=== PATIENT | male | born 1940 | race Caucasian/White ===

== ENCOUNTER 2016-08-22 21:33 | Emergency (ER) | payer MEDICARE, OTHER ==
[~2016-08-22] VITALS: Ht 177.8 cm; Wt 63.5 kg
[~2016-08-22 21:33] MED LIST: ASPIRIN EC81 MG PO; CLONAZEPAM1 MG PO; CYCLOBENZAPRINE10 MG PO; LIPITOR20 MG PO; LISINOPRIL20 MG PO; MAGNESIUM400 MG PO; METOPROLOL TAR100 MG PO; METOPROLOL TART50 MG PO; MSM1000 MG PO; MULTI VITAMIN1 EACH PO; NORCO 5-325 TA1 EACH PO; OMEPRAZOLE20 MG PO; PRILOSEC10 M1 PO; PROAIR HFA8.5 GM INH; SOMA350 MG PO; SYMBICORT 16010.2 GM INH; TRAMADOL HCL50 MG PO; VITAMIN D31000 UNIT PO
[2016-08-22] MEDS ORDERED: CLOPIDOGREL75 MG PO (21:49)
== END 2016-08-23 00:43 | disposition home or self-care (01) ==
LOC: ED 21:33
DX: R10.32 Left lower quadrant pain (principal); I10 Essential (primary) hypertension; I25.2 Old myocardial infarction; J43.9 Emphysema, unspecified; Z85.46 Personal history of malignant neoplasm of prostate; Z87.891 Personal history of nicotine dependence; Z90.79 Acquired absence of other genital organ(s); Z88.8 Allergy status to other drugs, medicaments and biological substances; Z79.82 Long term (current) use of aspirin; Z79.899 Other long term (current) drug therapy
CPT/HCPCS: 74177; 80053; 81001; 83690; 85025; 99284; Q9967

== ENCOUNTER 2017-06-18 17:09 | Emergency (ER) | payer MEDICARE, OTHER ==
[~2017-06-18] VITALS: Ht 177.8 cm; Wt 63.5 kg
[~2017-06-18 17:09] MED LIST changes: +CLOPIDOGREL75 MG PO
[2017-06-18] MEDS ORDERED: PLAVIX75 MG PO (18:11)
--- NOTE | 2017-06-19 16:01 | EKG ---
[facility] [address] [place] [address] Signed Sinus bradycardia with 1st degree AV block Left anterior fascicular block Inferior infarct (cited on or before 21-JAN-2016) Anterior infarct (cited on or before 21-JAN-2016) Abnormal ECG When compared with ECG of 22-FEB-2016 13:52, Left anterior fascicular block is now present T wave inversion no longer evident in Inferior leads Confirmed by SALEEM CRAWLEY MD ([id number]) on 06/19/2017 4:01:24 PM Electronically Signed By: SALEEM CRAWLEY MD 06/19/17 1601 PATIENT NAME: JOSÉ AGUIRRE Electrocardiogram DATE OF : 36 PHYSICIAN: SALEEM CRAWLEY MD REPORT #: [id number] REPORT IS CONFIDENTIAL AND NOT TO BE RELEASED WITHOUT AUTHORIZATION
== END 2017-06-18 18:21 | disposition home or self-care (01) ==
LOC: ED 17:09
DX: R07.9 Chest pain, unspecified (principal); I10 Essential (primary) hypertension; I25.2 Old myocardial infarction; J44.9 Chronic obstructive pulmonary disease, unspecified; Z87.891 Personal history of nicotine dependence; Z88.8 Allergy status to other drugs, medicaments and biological substances; Z79.899 Other long term (current) drug therapy; Z79.82 Long term (current) use of aspirin
CPT/HCPCS: 71045; 80053; 84484; 85025; 93005; 93010; 99283

== ENCOUNTER 2018-02-20 20:36 | Emergency (ER) | payer MEDICARE ==
[~2018-02-20] VITALS: Ht 177.8 cm; Wt 63.5 kg
[~2018-02-20 20:36] MED LIST changes: +ALBUTEROL2.5 MG/3 M INH; +PLAVIX75 MG PO; +PROVENTIL HFA6.7 GM INH
--- NOTE | 2018-02-21 07:00 | EKG ---
[facility] [address] [place] [address] Signed Sinus bradycardia with 1st degree AV block Left anterior fascicular block Cannot rule out Inferior infarct (cited on or before 22-FEB-2016) Anteroseptal infarct (cited on or before 21-JAN-2016) Abnormal ECG When compared with ECG of 18-JUN-2017 17:12, No significant change was found Confirmed by SALEEM CRAWLEY MD ([id number]) on 02/21/2018 7:00:29 AM Electronically Signed By: SALEEM CRAWLEY MD 02/21/18 0700 PATIENT NAME: JOSÉ AGUIRRE Electrocardiogram DATE OF : 36 PHYSICIAN: SALEEM CRAWLEY MD REPORT #: [id number] REPORT IS CONFIDENTIAL AND NOT TO BE RELEASED WITHOUT AUTHORIZATION
== END 2018-02-21 01:22 | disposition home or self-care (01) ==
LOC: ED 20:36
DX: R07.89 Other chest pain (principal); I10 Essential (primary) hypertension; I25.2 Old myocardial infarction; J43.9 Emphysema, unspecified; Z85.46 Personal history of malignant neoplasm of prostate; Z95.5 Presence of coronary angioplasty implant and graft; Z79.899 Other long term (current) drug therapy; Z79.82 Long term (current) use of aspirin
CPT/HCPCS: 71045; 80053; 83690; 84484; 85025; 93005; 93010; 99285-25

== ENCOUNTER 2018-11-15 00:41 | Emergency (ER) | payer MEDICARE ==
[~2018-11-15] VITALS: Ht 177.8 cm; Wt 61.2 kg
--- OUTSIDE RECORDS SUMMARY | ~2018-11-15 | XMS | Encounter Summary ---
Demographics + + + | Address | [address] | | | [place] [address] | + + + | Home Phone | | + + + | Preferred Language | Unknown | + + + | Marital Status | | + + + | Oriental Orthodox Affiliation | 1077 | + + + | Race | Unknown | + + + | Ethnic Group | Unknown | + + + Author + + + | Author | [facility] | | | and [place] | + + + | Organization | [facility] | | | and [place] | + + + | Address | Unknown | + + + | Phone | Unavailable | + + + Support + + + + + | Name | Relationship | Address | Phone | + + + + + | Jojo Mathew | ECON | [place] | | | | | [phone] | | + + + + + | Iqra Ellis | ECON | [address] | | | | | [place] | | | | | [phone] | | + + + + + Care Team Providers + +------+ + | Care Protection Engineer Name | Role | Phone | + +------+ + | Kurt Powell DO | PCP | | + +------+ + Reason for Visit + + + | Reason | Comments | + + + | Medication Refill | | + + + Encounter Details +--------+--------+ + + + | Date | Type | Department | Care Team | Description | +--------+--------+ + + + | 10/29/ | Refill | [facility] | Kurt Powell | Medication Refill | | 2019 | | [facility] | E, DO [address] | | | | | [facility] [address] | [place], [place] | | | | | [address] [place], | [address] | | | | | [place] [address] | [phone] | | | | | [phone] | | | +--------+--------+ + + + Social History + + + +--------+ + | Tobacco Use | Types | Packs/Day | Years | Date | | | | | Used | | + + + +--------+ + | Former Smoker | Cigarettes | 1 | | Quit: 01/22/2016 | + + + +--------+ + + +---+---+---+ | Smokeless Tobacco: | | | | | Never Used | | | | + +---+---+---+ + + +---------+ + | Alcohol Use | Drinks/We | oz/Week | Comments | | | ek | | | + + +---------+ + | No | | | Quit 01/22/2016 | + + +---------+ + + + + | Sex Assigned at | Date Recorded | | | | + + + | Not on file | | + + + + + + + | Job Start Date | Occupation | Industry | + + + + | Not on file | Not on file | Not on file | + + + + + + + + | Travel History | Travel Start | Travel End | + + + + + + | No recent travel history available. | + + documented as of this encounter Functional Status + + + + | Functional Status | Response | Date of Assessment | + + + + | Are you deaf or do you have serious | No | 01/27/2016 | | difficulty hearing? | | | + + + + | Are you blind or do you have serious | No | 01/27/2016 | | difficulty seeing, even when wearing | | | | glasses? | | | + + + + | Do you have serious difficulty walking or | No | 01/27/2016 | | climbing stairs? (5 years old or older) | | | + + + + | Do you have difficulty dressing or bathing? | No | 01/27/2016 | | (5 years old or older) | | | + + + + | Because of a physical, mental, or emotional | No | 01/27/2016 | | condition, do you have difficulty doing | | | | errands alone such as visiting a doctor's | | | | office or shopping? [15 years old or | | | | older)] | | | + + + + + + + + | Cognitive Status | Response | Date of Assessment | + + + + | Because of a physical, mental, or emotional | No | 01/27/2016 | | condition, do you have serious difficulty | | | | concentrating, remembering, or making | | | | decisions? (5 years old or older) | | | + + + + documented as of this encounter Plan of Treatment Not on filedocumented as of this encounter Visit Diagnoses Not on filedocumented in this encounter"
--- OUTSIDE RECORDS SUMMARY | ~2018-11-15 | XMS | Clinical Summary ---
Demographics + + + | Address | [address] | | | [place] [address] | + + + | Home Phone | | + + + | Preferred Language | Unknown | + + + | Marital Status | | + + + | Christian Affiliation | Unknown | + + + | Race | Unknown | + + + | Ethnic Group | Unknown | + + + Author + + + | Author | [facility] [employer] (Historical as of | | | 09-26-18) | + + + | Organization | [facility] [employer] (Historical as of | | | 09-26-18) | + + + | Address | Unknown | + + + | Phone | Unavailable | + + + Support + + + + + | Name | Relationship | Address | Phone | + + + + + | Iqar Ellis | ECON | [address] | | | | | [place], [place] | | | | | [address] | | + + + + + Care Team Providers + +------+ + | Care Typesetters Printer Name | Role | Phone | + +------+ + PP | Unavailable | + +------+ + Allergies Not on File Current Medications Not on file Active Problems Not on file Social History + +-------+ +--------+------+ | Tobacco Use | Types | Packs/Day | Years | Date | | | | | Used | | + +-------+ +--------+------+ | Never Assessed | | | | | + +-------+ +--------+------+ + + + | Sex Assigned at | Date Recorded | | | | + + + | Not on file | | + + + Plan of Treatment Not on file Results Not on filefrom Last 3 Months"
--- OUTSIDE RECORDS SUMMARY | ~2018-11-15 | XMS | Encounter Summary ---
Demographics + + + | Address | [address] | | | [place] [address] | + + + | Home Phone | | + + + | Preferred Language | Unknown | + + + | Marital Status | | + + + | Pentecostalism Affiliation | 1077 | + + + | Race | Unknown | + + + | Ethnic Group | Unknown | + + + Author + + + | Author | [facility] | | | and [place] | + + + | Organization | [facility] | | | and [place] | + + + | Address | Unknown | + + + | Phone | Unavailable | + + + Support + + + + + | Name | Relationship | Address | Phone | + + + + + | Jojo Mathew | ECON | [place] | | | | | [address] | | + + + + + | Iqra Ellis | ECON | [address] | | | | | [place] | | | | | [address] | | + + + + + Care Team Providers + +------+ + | Care Mail Technician Name | Role | Phone | + [...] Description | +--------+--------+ + + + | 08/26/ | Refill | [facility] | Eryn Greenwood, | Medication Refill | | 2019 | | [facility] | HIM SPECIALIST | | | | | [facility] [address] | | | | | | [address] [facility], | | | | | | [place] [address] | | | | | | [phone] | | | +--------+--------+ + + + [...]
--- OUTSIDE RECORDS SUMMARY | ~2018-11-15 | XMS | Encounter Summary ---
Demographics + + + | Address | [address] | | | [place] [address] | + + + | Home Phone | | + + + | Preferred Language | Unknown | + + + | Marital Status | | + + + | Adventism Affiliation | 1077 | + + + | Race | Unknown | + + + | Ethnic Group | Unknown | + + + Author + + + | Author | [facility] | | | and [place] | + + + | Organization | [facility] | | | and [place] | + + + | Address | Unknown | + + + | Phone | Unavailable | + + + Support + + + + + | Name | Relationship | Address | Phone | + + + + + | Jojo Mathew | ECON | [place] | | | | | [address] | | + + + + + | Iqra Ellis | ECON | [address] | | | | | [place] | | | | | [address] | | + + + + + Care Team Providers + +------+ + | Care Coach Driver Name | Role | Phone | + +------+ + | Kurt Powell DO | PCP | | + +------+ + Reason for Visit + + + | Reason | Comments | + + + | Medication Refill | | + + + | Medication Refill | | + + + Encounter Details +--------+--------+ + + + | Date | Type | Department | Care Team | Description | +--------+--------+ + + + | 08/26/ | Refill | [facility] | Kurt Powell | Medication Refill; | | 2018 | | [facility] | E, DO [address] | Medication Refill | | | | MEDICAL [facility] [address] | [place] | | | | | [address] [place], | [address] | | | | | [place] [address] | [phone] | | | | | [phone] | | | +--------+--------+ + + + [...]
--- OUTSIDE RECORDS SUMMARY | ~2018-11-15 | XMS | Clinical Summary ---
Demographics + + + | Address | [address] | | | [place] [address] | + + + | Home Phone | | + + + | Preferred Language | Unknown | + + + | Marital Status | | + + + | Shinto Affiliation | 1077 | + + + | Race | Unknown | + + + | Ethnic Group | Unknown | + + + Author + + + | Author | [facility] | | | and [place] | + + + | Organization | [facility] | | | and [place] | + + + | Address | Unknown | + + + | Phone | Unavailable | + + + Support + + + + + | Name | Relationship | Address | Phone | + + + + + | Jojo Mathew | ECON | [place] | | | | | [address] | | + + + + + | Iqra Ellis | ECON | [address] | | | | | [place] | | | | | [address] | | + + + + + Care Team Providers + +------+ + | Care Basic Sciences Dean Name | Role | Phone | + +------+ + | Kurt Powell DO | CAROL ANN | | + +------+ + Allergies + + + + + + | Active Allergy | Reactions | Severity | Noted | Comments | | | | | Date | | + + + + + + | Lisinopril | Swelling | | 01/21/20 | | | | | | 16 | | + + + + + + Medications + + + +---------+------+------+-------+ | Medication | Sig | Dispensed | Refills | Star | End | Statu | | | | | | t | Date | s | | | | | | Date | | | + + + +---------+------+------+-------+ | aspirin (ADULT | Take 81 mg by mouth | | 0 | 10/11 | | Activ | | ASPIRIN EC LOW | Daily. | | | 04/29 | | e | | STRENGTH) 81 MG EC | | | | 12 | | | | tablet | | | | | | | + + + +---------+------+------+-------+ | cholecalciferol | Take 400 Units by | | 0 | | | Activ | | (VITAMIN D-3) 1,000 | mouth Daily. | | | | | e | | units capsule | | | | | | | + + + +---------+------+------+-------+ | Multiple | Take 1 tablet by | 30 | 11 | / | | Activ | | Vitamins-Minerals | mouth Daily. | tablet | | /20 | | e | | (ADULT MULTIVITAMIN | | | | 16 | | | | WITH MINERALS/IRON) | | | | | | | | TABS | | | | | | | + + + +---------+------+------+-------+ | nitroglycerin | DISSOLVE ONE TABLET | 25 | 11 | / | | Activ | | (NITROSTAT) 0.4 mg | UNDER THE TONGUE | tablet | | /20 | | e | | SL tablet | EVERY 5 MINUTES | | | 18 | | | | | NEEDED FOR CHEST | | | | | | | | PAIN. DO NOT EXCEED | | | | | | | | A TOTAL OF 3 DOSES | | | | | | | | IN 15 MINUTES | | | | | | + + + +---------+------+------+-------+ | omeprazole | TAKE ONE CAPSULE BY | 90 | 3 | 11/1 | | Activ | | (PRILOSEC) 20 mg | MOUTH IN THE MORNING | capsule | | 3/20 | | e | | capsule | BEFORE BREAKFAST | | | 18 | | | + + + +---------+------+------+-------+ | melatonin 1 mg | Take by mouth | | 0 | | | Activ | | TABS | nightly as needed. | | | | | e | + + + +---------+------+------+-------+ | docusate sodium | Take 100 mg by mouth | | 0 | | | Activ | | (STOOL SOFTENER) 100 | 2 times daily. | | | | | e | | MG tablet | | | | | | | + + + +---------+------+------+-------+ | APPLE CIDER | Take by mouth | | 0 | | | Activ | | VINEGAR PO | Daily. | | | | | e | + + + +---------+------+------+-------+ | GINKGO BILOBA PO | Take by mouth | | 0 | | | Activ | | | Daily. | | | | | e | + + + +---------+------+------+-------+ | | Take by mouth | | 0 | | | Activ | | Methylsulfonylmethan | Daily. | | | | | e | | e (MSM PO) | | | | | | | + + + +---------+------+------+-------+ | tamsulosin | Take 1 capsule by | 90 | 3 | 12/1 | | Activ | | (FLOMAX) 0.4 mg CAPS | mouth Daily (with | capsule | | 0/20 | | e | | | dinner). | | | 18 | | | + + + +---------+------+------+-------+ | atorvaSTATin | TAKE 1 TABLET BY | 90 | 3 | 02/2 | | Activ | | (LIPITOR) 40 mg | MOUTH ONCE DAILY AT | tablet | | 0/20 | | e | | tablet | BEDTIME | | | 19 | | | + + + +---------+------+------+-------+ | albuterol 2.5 mg/3 | Take 3 mLs by | 360 | 11 | 03/2 | | Activ | | mL nebulizer | nebulization 4 times | vial | | 07/30 | | e | | solution | daily as needed for | | | 19 | | | | | Wheezing or | | | | | | | | Shortness of Breath. | | | | | | | | CORRECTED DOSE. | | | | | | + + + +---------+------+------+-------+ | albuterol 90 | INHALE 1 PUFF EVERY | 18 g | 11 | 03/2 | | Activ | | mcg/puff inhaler | 4 HOURS NEEDED | | | 920 | | e | | | SHORTNESS OF BREATH | | | 19 | | | + + + +---------+------+------+-------+ | metoprolol | TAKE 1 TABLET BY | 180 | 3 | 08/1 | | Activ | | tartrate (LOPRESSOR) | MOUTH TWICE DAILY | tablet | | 2/20 | | e | | 100 mg tablet | (PLEASE SCHEDULE | | | 19 | | | | | AN CARDIOLOGY | | | | | | | | APPOINTMENT) | | | | | | + + + +---------+------+------+-------+ | DULoxetine | Take 1 capsule by | 60 | 2 | / | | Activ | | (CYMBALTA) [address] | mouth 2 times daily. | capsule | | 2/20 | | e | | capsuleIndications: | | | | 19 | | | | Osteoarthritis of | | | | | | | | right thumb, | | | | | | | | Depression, | | | | | | | | unspecified | | | | | | | | depression type | | | | | | | + + + +---------+------+------+-------+ | traMADol (ULTRAM) | Take 1 tablet by | 60 | 1 | 08/2 | | Activ | | 50 mg tablet | mouth every 8 hours | tablet | | 08/29 | | e | | | as needed. | | | 19 | | | + + + +---------+------+------+-------+ | clonazePAM | TAKE 1 TABLET BY | 30 | 1 | 10/11 | | Activ | | (KLONOPIN) 1 mg | MOUTH AT BEDTIME | tablet | | 09/29 | | e | | tablet | NEEDED FOR ANXIETY | | | 19 | | | + + + +---------+------+------+-------+ | clonazePAM | TAKE 1 TABLET BY | 30 | 1 | 08/10 | 10/11 | Disco | | (KLONOPIN) 1 mg | MOUTH NIGHTLY | tablet | | 08/29 | 08/29 | ntinu | | tablet | NEEDED FOR ANXIETY | | | 19 | 19 | ed | + + + +---------+------+------+-------+ Active Problems + + + | Problem | Noted Date | + + + | COPD with acute exacerbation | 01/19/2018 | + + + | Chronic back pain | 01/19/2018 | + + + | Sleep apnea | 01/19/2018 | + + + | Coronary atherosclerosis | 04/30/2017 | + + + | Moderate protein-calorie malnutrition | 01/27/2016 | + + + | Multivessel Coronary Disease | 01/27/2016 | + + + | Alcohol abuse | 01/23/2016 | + + + | ST elevation myocardial infarction involving right coronary | 01/21/2016 | | artery | | + + + | Tobacco user | | + + + | Hypertension | | + + + | Hyperlipidemia | | + + + | PROSTATE CANCER | | + + + | SPONDYLOLISTHESIS,LUMBAR L2-3,L3-4,L4-5 AND L5-S1 | | + + + | SPINAL STENOSIS, LUMBAR - SEVERE L2-3, L3-4 | | + + + | SPINAL STENOS LUMB REGION NEUROGEN CLAUDICATION | | + + + | DEXTROSCOLIOSIS | | + + + | SACROILIITIS, RIGHT | | + + + | Pulmonary emphysema | | + + + + + | Overview: SARAH [id number] Decision | + + + +---+ | POLYCYTHEMIA RUBRA VERA | | + +---+ | HTN (hypertension) | | + +---+ Encounters +--------+ + + + + | Date | Type | Specialty | Care Team | Description | +--------+ + + + + | 10/29/ | Refill | Primary Care | Kurt Powell | Medication Refill | | 2018 | | | E, DO | | +--------+ + + + + | 10/29/ | Telephone | Primary Care | Dominique Cameron CC | Medication Refill | | 2018 | | | CLEAN ROOM ASSEMBLER | | +--------+ + + + + | 10/27/ | Telephone | Primary Care | Kurt Powell | Medication Refill; | | 2018 | | | E, DO | Medication Refill | +--------+ + + + + | 10/05/ | Telephone | Primary Care | Kurt Powell | Medication Question | | 2018 | | | E, DO | | +--------+ + + + + | 10/01/ | Office | Primary Care | Kurt Powell | Osteoarthritis of | | 2019 | Visit | | E, DO | right thumb (Primary | | | | | | Dx); Lumbar | | | | | | spondylosis; | | | | | | Depression, | | | | | | unspecified | | | | | | depression type | +--------+ + + + + | 09/20/ | Refill | Primary Care | Kurt Powell | Medication Refill | | 2018 | | | E, DO | | +--------+ + + + + | 08/26/ | Refill | Primary Care | Kurt Powell | Medication Refill | | 2018 | | | E, DO | | +--------+ + + + + | 08/26/ | Refill | Primary Care | Kurt Powell | Medication Refill; | | 2018 | | | E, DO | Medication Refill | +--------+ + + + + | 08/26/ | Refill | Primary Care | Eryn Greenwood, | Medication Refill | | 2018 | | | CC CLEAN ROOM ASSEMBLER | | +--------+ + + + + from Last 3 Months Immunizations + + + + | Name | Dates Previously Given | Next Due | + + + + | INFLUENZA PF 16 Y OR | 10/29/2016 | | | >,TRIVALENT | | | | RECOMBINANT | | | + + + + | INFLUENZA PF | 01/26/2016 | | | QUAD(PED/ADOL/ADULT) | | | | ,PSKT or VIAL | | | + + + + | PNEUMOCOCCAL | 01/26/2016 | | | CONJUGATE 13-VALENT | | | | (PCV13) | | | + + + + | TDAP, (ADOL/ADULT) | 06/04/2012 | | + + + + | ZOSTER, 1 DOSE | 04/25/2012 | | | (ZOSTAVAX) | | | + + + + Social History + + [...] | | | + +---+---+---+ + + | Tobacco Cessation: Counseling Given: No | + + + + +---------+ + | Alcohol Use [...] recent travel history available. | + + Last Filed Vital Signs + + + + | Vital Sign | Reading | Time Taken | + + + + | Blood Pressure | 130/70 | 10/01/2018 1505 PDT | + + + + | Pulse | 55 | 10/01/2018 1505 PDT | + + + + | Temperature | 36.8 C (98.2 F) | 01/19/201834 PST | + + + + | Respiratory Rate | 20 | 10/01/2018 1505 PDT | + + + + | Oxygen Saturation | 93% | 10/01/20181504 PDT | + + + + | Inhaled Oxygen | - | - | | Concentration | | | + + + + | Weight | 59 kg (130 lb) | 10/01/2018 1505 PDT | + + + + | Height | 180.3 cm (5' 11") | 10/01/2018 1505 PDT | + + + + | Body Mass Index | 18.13 | 10/01/20185 PDT | + + + + Plan of Treatment + + + + + | Health Maintenance | Due Date | Last Done | Comments | + + + + + | Urine Drug Screening | | | | | | 5 | | | + + + + + | Vaccine: Zoster (2 | | 04/25/2012 | | | of 3) | 3 | | | + + + + + | Adult Annual | | | | | Wellness Visit | 5 | | | + + + + + | Vaccine: | | 01/26/2016 | | | Pneumococcal 65+ | 7 | | | | High/Highest Risk (2 | | | | | of 2 - PPSV23) | | | | + + + + + | Vaccine: Influenza | | 10/29/2016, 10/29/2016, | | | (#1) | 9 | 01/26/2016 | | + + + + + | Primary Care | | 10/01/2018, 04/16/2018, | | | Outreach (Very | 9 | 01/19/2018, Additional history | | | Intense Risk) | | exists | | + + + + + | Vaccine: | | 06/04/2012 | | | Dtap/Tdap/Td (2 - | 3 | | | | Td) | | | | + + + + + Implants + +-------+--------+ +--------+--------+--------+ | Implanted | Type | Area | Manufacture | Device | Shelf | Model | | | | | r | | Expira | / | | | | | | Identi | tion | Serial | | | | | | fier | Date | / Lot | + +-------+--------+ +--------+--------+--------+ | Promis Premier Monorail | Stent | N/A: | [place] | | 12/24/ | [id number] | | [employer] [place] [employer] [place] | | Castillo | SCIENTIFIC | | 2016 | [id number] | | Chromium Coronary Stent | | ry | MAYKEL - BSCI | | | 5O / | | System Implanted: Qty: 1 on | | | | | | /[id number] | | 01/21/2016 by Abiola Hardwick | | | | | | 025 | | MD [place] | | | | | | | + +-------+--------+ +--------+--------+--------+ | Promus Preimer Monorail | Stent | N/A: | [place] | | 12/10/ | [id number] | | [employer] [place] | | Castillo | SCIENTIFIC | | 2016 | [id number] | | Chromium Coronary Stent | | ry | MAYKEL - BSCI | | | 5O / | | System Implanted: Qty: 1 on | | | | | | /[id number] | | 01/21/2016 by Abiola Hardwick | | | | | | 737 | | MD [place] | | | | | | | + +-------+--------+ +--------+--------+--------+ | Promus Premier Monorail | Stent | N/A: | [place] | | 12/18/ | [id number] | | [employer] [place] [employer] [place] | | Castillo | SCIENTIFIC | | 2017 | [id number] | | Chromium Coronary Stent | | ry | MAYKEL - BSCI | | | 0O / | | SystemImplanted: Qty: 1 on | | | | | | /[id number] | | 01/25/2016 by Abiola Hardwick | | | | | | 847 | | MD [place] | | | | | | | + +-------+--------+ +--------+--------+--------+ Results Not on filefrom Last 3 Months Insurance + +--------+ +--------+ +---------+--------+ | Payer | Benefi | Subscriber | Effect | Phone | Address | Type | | | t Plan | ID | courtney | | | | | | / | | Dates | | | | | | Group | | | | | | + +--------+ +--------+ +---------+--------+ | MEDICARE | MEDICA | [id number] | 10/12/19 | [phone] | | Medica | | | RE | | 04-Pre | 5 | | re | | | PART A | | sent | | | | | | AND B | | | | | | + +--------+ +--------+ +---------+--------+ | MEDICARE | MEDICA | [id number] | 02/10/19 | [phone] | | Medica | | | RE | | 17-Pre | 5 | | re | | | PART A | | sent | | | | | | AND B | | | | | | + +--------+ +--------+ +---------+--------+ | HUMANA | HUMANA | [id number] | 02/10/19 | [phone] | | Indemn | | | MDCR | | 17-Pre | 4 | | ity | | | SUPPL | | sent | | | | + +--------+ +--------+ +---------+--------+ + +--------+ +--------+ + + | Guarantor Name | Accoun | Relation to | Date | Phone | Billing Address | | | t Type | Patient | of | | | | | | | | | | + +--------+ +--------+ + + | Kiran Ellis | Person | Self | [birth year] | [address] | | Kranthi | al/Fam | | 1941 | [phone] | [place] | | | po | | | 6 (Home) | [address] | + +--------+ +--------+ + + | Kiran Ellis | Person | Self | [birth year] | [address] | | Kranthi | al/Fam | | 1941 | [phone] | [place] | | | po | | | 6 (Home) | [address] | + +--------+ +--------+ + + Advance Directives Patient has advance care planning documents, and code status on file. For more information, please contact:[facility] [place] [address] + + + + + | Code Status | Date | Date | Comments | | | Activated | Inactivated | | + + + + + | Full Code | 01/22/2016 | 01/27/2016 | | | | 10:39 | 16:03 | | + + + + +
--- OUTSIDE RECORDS SUMMARY | ~2018-11-15 | XMS | Encounter Summary ---
Demographics + + + | Address | [address] | | | [place] [address] | + + + | Home Phone | | + + + | Preferred Language | Unknown | + + + | Marital Status | | + + + | Evangelical Affiliation | 1077 | + + + | Race | Unknown | + + + | Ethnic Group | Unknown | + + + Author + + + | Author | [facility] | | | and [place] | + + + | Organization | [facility] | | | and [place] | + + + | Address | Unknown | + + + | Phone | Unavailable | + + + Support + + + + + | Name | Relationship | Address | Phone | + + + + + | Jojo Mathew | ECON | [place] | | | | | [address] | | + + + + + | Iqra Ellis | ECON | [address] | | | | | [place] | | | | | [address] | | + + + + + Care Team Providers + +------+ + | Care Lumber Grader Name | Role | Phone | + +------+ + | Kurt Powell DO | PCP | | + +------+ + Reason for Visit + + + | Reason | Comments | + + + | Medication Question | | + + + Encounter Details +--------+ + + + + | Date | Type | Department | Care Team | Description | +--------+ + + + + | 10/05/ | Telephone | [facility] | Kurt Powell | Medication Question | | 2018 | | [facility] | E, DO [address] | | | | | [facility] [address] | [place], [place] | | | | [address] [place], | [address] | | | | | [place] [address] | [phone] | | | | | [phone] | | | +--------+ + + + + Social History + [...]
--- OUTSIDE RECORDS SUMMARY | ~2018-11-15 | XMS | Encounter Summary ---
Demographics + + + | Address | [address] | | | [place] [address] | + + + | Home Phone | | + + + | Preferred Language | Unknown | + + + | Marital Status | | + + + | Sabianism Affiliation | 1077 | + + + | Race | Unknown | + + + | Ethnic Group | Unknown | + + + Author + + + | Author | [facility] | | | and [place] | + + + | Organization | [facility] | | | and [place] | + + + | Address | Unknown | + + + | Phone | Unavailable | + + + Support + + + + + | Name | Relationship | Address | Phone | + + + + + | Jojo Mathew | ECON | [place] | | | | | [address] | | + + + + + | Iqra Ellis | ECON | [address] | | | | | [place] | | | | | [address] | | + + + + + Care Team Providers + +------+ + | Care Electromedical Service Engineer Name | Role | Phone | + +------+ + | Kurt Powell DO | PCP | | + +------+ + Reason for Visit + + + | Reason | Comments | + + + | Follow-up | Follow up on medications | + + + | Hand Pain | RIGHT hand pain with decreased ROM and gis manager | + + + Encounter Details +--------+---------+ + + + | Date | Type | Department | Care Team | Description | +--------+---------+ + + + | 10/01/ | Office | [facility] | Kurt Powell | Osteoarthritis of | | 2019 | Visit | [facility] | E, DO [address] | right thumb (Primary | | | | [facility] | [place], [place] | Dx); Lumbar | | | | [address] [place], | [address] | spondylosis; | | | | [place] [address] | [phone] | Depression, | | | | [phone] | | unspecified | | | | | | depression type | +--------+---------+ + + + Social History + + [...] + + documented as of this encounter Last Filed Vital Signs + + + + | Vital Sign | Reading | Time Taken | + + + + | Blood Pressure | 130/70 | 10/01/2018 1505 PDT | + + + + | Pulse | 55 | 10/01/2018 1505 PDT | + + + + | Temperature | - | - | + + + + | Respiratory Rate | 20 | 10/01/20181504 PDT | + + + + | Oxygen Saturation | 93% | 10/01/20181504 PDT | + + + + | Inhaled Oxygen | - | - | | Concentration | | | + + + + | Weight | 59 kg (130 lb) | 10/01/20181504 PDT | + + + + | Height | 180.3 cm (5' 11") | 10/01/20181504 PDT | + + + + | Body Mass Index | 18.13 | 10/01/2018 1505 PDT | + + + + documented in this encounter Functional Status + + + [...] + + documented as of this encounter Progress Notes Kurt Powell, - 10/01/2018 1520 PDT Patient ID: Kiran Ellis is a 77 y.o. year old male Chief Complaint: Chief Complaint Patient presents with Follow-up Follow up on medications Hand Pain RIGHT hand pain with decreased ROM and gis manager Assessment 1. Osteoarthritis of right thumb - bupivacaine (MARCAINE) 0.5% injection 0.5 mL - Joint injection procedure - DULoxetine (CYMBALTA) [address] capsule; Take 1 capsule by mouth 2 times daily. Dispense: 60 capsule; Refill: 2 - triamcinolone acetonide (KENALOG-10) 10 mg/mL injection 10 mg 2. Lumbar spondylosis 3. Depression, unspecified depression type - DULoxetine (CYMBALTA) [address] capsule; Take 1 capsule by mouth 2 times daily. Dispense: 60 capsule; Refill: 2 Plan: -Patient consented to risks of steroid injection for right thumb pain. Risks including ble eding, infection, reaction to anesthetic, steroid flare, minimal and/or temporary relief of pain. Prepped and draped in a sterile fashion. Then 10 mg of Kenalog mixed with 1/2 cc 0.5% bupivocaine without epinephrine was injected using medial approach. Patient tolerated well , no bleeding, no complications. Aftercare instructions discussed. -PHQ2: 2. Initiated Duloxetine 20 mg BID. This medication will help both back pain and depr ession. F/u in 2 weeks. Subjective: HPI: Patient presents to the clinic for medication review. He continues to experience back pain. Flares described as stabbing pain to right lower back , seemed to be triggered with movement. Radiates to hip. Some relief with rest and stretchin g. Confirms that his back flares daily. Utilizing Tramadol 50 mg occasionally. Of note, he h as never filled refill of this medication, since prescribed 01/2018 as he states that this m edication doesn't help his pain much. Patient is also concerned with worsening right hand pain. Associated with decreased gis manager st rength. Exacerbated with certain movements. Occasional radiation of pain to wrist. Experiencing some shortness of breath with exertion. Notes episodes while out in his yard. Associated with some rapid heart rate. Patient admits that he may have some depression. Reports some grief and familial strain. Current Outpatient Medications Medication Sig Dispense Refill albuterol 2.5 mg/3 mL nebulizer solution Take 3 mLs by nebulization 4 times daily as ne eded for Wheezing or Shortness of Breath. CORRECTED DOSE. 360 vial 11 albuterol 90 mcg/puff inhaler INHALE 1 PUFF EVERY 4 HOURS NEEDED SHORTNESS OF BREATH 18 g 11 APPLE CIDER VINEGAR PO Take by mouth Daily. aspirin (ADULT ASPIRIN EC LOW STRENGTH) 81 MG EC tablet Take 81 mg by mouth Daily. atorvaSTATin (LIPITOR) 40 mg tablet TAKE 1 TABLET BY MOUTH ONCE DAILY AT BEDTIME 90 tab let 3 cholecalciferol (VITAMIN D-3) 1,000 units capsule Take 400 Units by mouth Daily. clonazePAM (KLONOPIN) 1 mg tablet TAKE 1 TABLET BY MOUTH NIGHTLY NEEDED FOR ANXIETY 30 tablet 1 docusate sodium (STOOL SOFTENER) 100 MG tablet Take 100 mg by mouth 2 times daily. GINKGO BILOBA PO Take by mouth Daily. melatonin 1 mg TABS Take by mouth nightly as needed. Methylsulfonylmethane (MSM PO) Take by mouth Daily. metoprolol tartrate (LOPRESSOR) 100 mg tablet TAKE 1 TABLET BY MOUTH TWICE DAILY (BECKY Ibarra SCHEDULE AN CARDIOLOGY APPOINTMENT) 180 tablet 3 Multiple Vitamins-Minerals (ADULT MULTIVITAMIN WITH MINERALS/IRON) TABS Take 1 tablet b y mouth Daily. 30 tablet 11 nitroglycerin (NITROSTAT) 0.4 mg SL tablet DISSOLVE ONE TABLET UNDER THE TONGUE EVERY 5 MINUTES NEEDED FOR CHEST PAIN. DO NOT EXCEED A TOTAL OF 3 DOSES IN 15 MINUTES 25 tablet 11 omeprazole (PRILOSEC) 20 mg capsule TAKE ONE CAPSULE BY MOUTH IN THE MORNING BEFORE BR EAKFAST 90 capsule 3 tamsulosin (FLOMAX) 0.4 mg CAPS Take 1 capsule by mouth Daily (with dinner). 90 capsule 3 traMADol (ULTRAM) 50 mg tablet Take 1 tablet by mouth every 8 hours as needed. 60 table t 0 No current facility-administered medications for this visit. 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 No pertinent family history. Past Surgical History: Procedure Laterality Date CARDIAC CATHERIZATION N/A 01/21/2016 Procedure: CV Cor Angio; Surgeon: Abiola Hardwick MD; Location: [facility] CV LAB CARDIAC CATHERIZATION N/A 01/25/2016 Procedure: CV LHC; Surgeon: Abiola Hardwick MD; Location: [facility] CV LAB gastric ulcer HERNIA REPAIR PROSTATE SURGERY SHOULDER SURGERY Social History Socioeconomic History Marital status: Spouse name: Not on file Number of children: Not on file Years of education: Not on file Highest education level: Not on file Social Needs Financial resource strain: Not on file Food insecurity - worry: Not on file Food insecurity - inability: Not on file Transportation needs - medical: Not on file Transportation needs - non-medical: Not on file Occupational History Not on file Tobacco Use Smoking status: Former Smoker Packs/day: 1.00 Types: Cigarettes Last attempt to quit: 01/22/2016 Years since quittin.6 Smokeless tobacco: Never Used Substance and Sexual Activity Alcohol use: No Comment: Quit 01/22/2016 Drug use: No Sexual activity: Yes Partners: Female control/protection: None Other Topics Concern Not on file Social History Narrative Not on file Allergies Allergen Reactions Lisinopril Swelling Review of Systems Respiratory: Positive for shortness of breath. Cardiovascular: Positive for palpitations. Musculoskeletal: Positive for arthralgias (right hand) and back pain. Objective: Vitals: BP 130/70 | Pulse 55 | Resp 20 | Ht 1.803 m (5' 11") | Wt 59 kg (130 lb) | SpO2 93% | BMI 18.13 kg/m Physical Exam Constitutional: He is oriented to person, place, and time. Thin elderly male HENT: Head: Normocephalic and atraumatic. Right Ear: External ear normal. Left Ear: External ear normal. Nose: Nose normal. Mouth/Throat: Oropharynx is clear and moist. No oropharyngeal exudate. Eyes: Pupils are equal, round, and reactive to light. Conjunctivae are normal. Neck: Normal range of motion. No thyromegaly present. Cardiovascular: Normal rate, regular rhythm and normal heart sounds. Pulses: Radial pulses are 2+ on the right side. Pulmonary/Chest: Effort normal and breath sounds normal. Abdominal: Soft. Bowel sounds are normal. Musculoskeletal: Right hand: Degenerative changes on base of right thumb. Back: Diffuse tenderness and trigger points on lumbar spine Neurological: He is alert and oriented to person, place, and time. Sensation intact to right hand and distal thumb Skin: Four sebaceous cysts noted on midline back. No evidence of infection Psychiatric: His behavior is normal. Thought content normal. He exhibits a depressed mood. This documentation prepared by Jeniffer Sharpe director medical affairs. All aspects of this chart re viewed for accuracy and content by Kurt Powell DO at the date and time of service. Electronically signed by: Dr. Kurt Powell DO 10/01/2018 15:46 documented in this en counter Plan of Treatment + +--------+ + + | Name | Priori | Associated Diagnoses | Order Schedule | | | ty | | | + +--------+ + + | Joint injection procedure | Routin | Osteoarthritis of | Ordered: 10/01/2018 | | | e | right thumb | | + +--------+ + + documented as of this encounter Visit Diagnoses + + | Diagnosis | + + | Osteoarthritis of right thumb - Primary | + + | Lumbar spondylosis Lumbosacral spondylosis without myelopathy | + + | Depression, unspecified depression type | + + documented in this encounter Administered Medications + +--------+ +---------+------+ + | Medication Order | MAR | Action | Dose | Rate | Site | | | Action | Date | | | | + +--------+ +---------+------+ + | bupivacaine (MARCAINE) 0.5% | Given | 10/02/19 | 0.5 mLs | | Other | | injection 0.5 mL 0.5 mL, | | 19 16:09 | | | (Comment | | Infiltration, ONCE, [facility] 10/01/18 | | PDT | | | ) | | at 1630, For 1 dose | | | | | | + +--------+ +---------+------+ + +---+---+ | | | +---+---+ + +-------+ +-------+---+---+ | triamcinolone acetonide | Given | 10/02/19 | 10 mg | | | | (KENALOG-10) 10 mg/mL injection | | 19 16:11 | | | | | 10 mg 10 mg, Intra-articular, | | PDT | | | | | ONCE, [facility] 10/01/18 at 1630, For 1 | | | | | | | dose, Shake well. Not for IV | | | | | | | use., | | | | | | + +-------+ +-------+---+---+ +---+---+ | | | +---+---+ documented in this encounter
--- OUTSIDE RECORDS SUMMARY | ~2018-11-15 | XMS | Encounter Summary ---
Demographics + + + | Address | [address] | | | [place] [address] | + + + | Home Phone | | + + + | Preferred Language | Unknown | + + + | Marital Status | | + + + | Zoroastrian Affiliation | 1077 | + + + | Race | Unknown | + + + | Ethnic Group | Unknown | + + + Author + + + | Author | [facility] | | | and [place] | + + + | Organization | [facility] | | | and [place] | + + + | Address | Unknown | + + + | Phone | Unavailable | + + + Support + + + + + | Name | Relationship | Address | Phone | + + + + + | Jojo Mathew | ECON | [place] | | | | | [address] | | + + + + + | Iqra Ellis | ECON | [address] | | | | | [place] | | | | | [address] | | + + + + + Care Team Providers + +------+ + | Care Sawmill Manager Name | Role | Phone | + +------+ + | Kurt Pwoell DO | PCP | | + +------+ [...] Medication Refill; | | 2018 | | [facility] | E, DO [address] | Medication Refill | | | | MEDICAL [facility] [address] | [place] | | | | | [address] [place], | [address] | | | | | [place] [address] | [phone] | | | | | [phone] | | | +--------+--------+ + + + [...]
--- OUTSIDE RECORDS SUMMARY | ~2018-11-15 | XMS | Encounter Summary ---
Demographics + + + | Address | [address] | | | [place] [address] | + + + | Home Phone | | + + + | Preferred Language | Unknown | + + + | Marital Status | | + + + | Rastafarian Affiliation | 1077 | + + + | Race | Unknown | + + + | Ethnic Group | Unknown | + + + Author + + + | Author | [facility] | | | and [place] | + + + | Organization | [facility] | | | and [place] | + + + | Address | Unknown | + + + | Phone | Unavailable | + + + Support + + + + + | Name | Relationship | Address | Phone | + + + + + | Jojo Mathew | ECON | [place] | | | | | [address] | | + + + + + | Iqra Ellis | ECON | [address] | | | | | [place] | | | | | [address] | | + + + + + Care Team Providers + +------+ + | Care Manager Analytical Name | Role | Phone | + [...] + + | 10/29/ | Telephone | [facility] | Dominique Cameron, CC | Medication Refill | | 2018 | | [facility] | [facility] | | | | | MEDICAL CL[facility] [address] | | | | | | [address] [facility], | | | | | | [place] [address] | | | | | | [phone] | | | +--------+ + + + [...]
--- OUTSIDE RECORDS SUMMARY | ~2018-11-15 | XMS | Clinical Summary ---
Demographics + + + | Address | [address] | | | [place] [address] | + + + | Home Phone | | + + + | Preferred Language | Unknown | + + + | Marital Status | | + + + | Zoroastrianism Affiliation | Unknown | + + + | Race | Unknown | + + + | Ethnic Group | Unknown | + + + Author + + + | Author | [email or web address] (Historical as of | | | 09-26-18) | + + + | Organization | [email or web address] (Historical as of | | | 09-26-18) | + + + | Address | Unknown | + + + | Phone | Unavailable | + + + Support + + + + + | Name | Relationship | Address | Phone | + + + + + | Iqra Ellis | ECON | [address] | | | | | [place], [place] | | | | | [address] | | + + + + + Care Team Providers + +------+ + | Care Lawn Mower Mechanic Name | Role | Phone | + [...]
--- OUTSIDE RECORDS SUMMARY | ~2018-11-15 | XMS | Encounter Summary ---
Demographics + + + | Address | [address] | | | [place] [address] | + + + | Home Phone | | + + + | Preferred Language | Unknown | + + + | Marital Status | | + + + | Christian Affiliation | 1077 | + + + | Race | Unknown | + + + | Ethnic Group | Unknown | + + + Author + + + | Author | [facility] | | | and [place] | + + + | Organization | [facility] | | | and [place] | + + + | Address | Unknown | + + + | Phone | Unavailable | + + + Support + + + + + | Name | Relationship | Address | Phone | + + + + + | Jojo Mathew | ECON | [place] | | | | | [address] | | + + + + + | Iqra Ellis | ECON | [address] | | | | | [place] | | | | | [address] | | + + + + + Care Team Providers + +------+ + | Care Wire Stitcher Operator Name | Role | Phone | + [...] Description | +--------+--------+ + + + | 09/20/ | Refill | [facility] | Kurt Powell | Medication Refill | | 2019 | | [facility] | E, DO [address] | | | | | MEDICAL CLINIC [address] | [place], [place] | | | | | [address] [place], | [address] | | | | | [place] [address] | [phone] | | | | | [phone] | | | +--------+--------+ + + + [...]
--- OUTSIDE RECORDS SUMMARY | ~2018-11-15 | XMS | Encounter Summary ---
Demographics + + + | Address | [address] | | | [place] [address] | + + + | Home Phone | | + + + | Preferred Language | Unknown | + + + | Marital Status | | + + + | Yarsanism Affiliation | 1077 | + + + | Race | Unknown | + + + | Ethnic Group | Unknown | + + + Author + + + | Author | [facility] | | | and [place] | + + + | Organization | [facility] | | | and [place] | + + + | Address | Unknown | + + + | Phone | Unavailable | + + + Support + + + + + | Name | Relationship | Address | Phone | + + + + + | Jojo Mathew | ECON | [place] | | | | | [address] | | + + + + + | Iqra Ellis | ECON | [address] | | | | | [place] | | | | | [address] | | + + + + + Care Team Providers + +------+ + | Care Ream Cutter Name | Role | Phone | + [...] Medication Refill | | 2018 | | [facility] | [facility] | | | | | MEDICAL CL[facility] [address] | | | | | | [address] [facility], | | | | | | [place] [address] | | | | | | [phone] | | | +--------+ + + + [...]
--- OUTSIDE RECORDS SUMMARY | ~2018-11-15 | XMS | Encounter Summary ---
Demographics + + + | Address | [address] | | | [place] [address] | + + + | Home Phone | | + + + | Preferred Language | Unknown | + + + | Marital Status | | + + + | Sabianist Affiliation | 1077 | + + + | Race | Unknown | + + + | Ethnic Group | Unknown | + + + Author + + + | Author | [facility] | | | and [place] | + + + | Organization | [facility] | | | and [place] | + + + | Address | Unknown | + + + | Phone | Unavailable | + + + Support + + + + + | Name | Relationship | Address | Phone | + + + + + | Jojo Mathew | ECON | [place] | | | | | [address] | | + + + + + | Iqra Ellis | ECON | [address] | | | | | [place] | | | | | [address] | | + + + + + Care Team Providers + +------+ + | Care Home Organizer Name | Role | Phone | + +------+ + | Kurt Powell DO | PCP | | + +------+ + Reason for Visit + + + | Reason | Comments | + + + | Follow-up | Follow up on medications | + + + | Hand Pain | RIGHT hand pain with decreased ROM and hims manager | + + + Encounter Details [...] | | [address] [place], | [address] | spondylosis; | | | | [place] [address] | [phone] | Depression, | | | | [phone] | | unspecified | | | | [...] RIGHT hand pain with decreased ROM and hims manager Assessment 1. Osteoarthritis of right thumb [...] worsening right hand pain. Associated with decreased hims manager st rength. Exacerbated with certain movements. [...] Cor Angio; Surgeon: Abiola Hardwick MD; Location: [facility] CV LAB CARDIAC CATHERIZATION N/A 01/25/2016 Procedure: CV LHC; Surgeon: Abiola Hardwick MD; Location: [facility] CV LAB gastric ulcer HERNIA REPAIR [...] mood. This documentation prepared by Jeniffer Sharpe mobile paramedical examiner. All aspects of this chart re viewed [...] | | (Comment | | Infiltration, ONCE, [facility] 10/01/18 | | PDT | | | [...] PDT | | | | | ONCE, [facility] 10/01/18 at 1630, For 1 | | | | | | | dose, Shake well. Not for IV | | | | | | | use., | | | | | | + +-------+ +-------+---+---+ +---+---+ | | | +---+---+ documented in this encounter
--- OUTSIDE RECORDS SUMMARY | ~2018-11-15 | XMS | Encounter Summary ---
Demographics + + + | Address | [address] | | | [place] [address] | + + + | Home Phone | | + + + | Preferred Language | Unknown | + + + | Marital Status | | + + + | Scientologist Affiliation | 1077 | + + + | Race | Unknown | + + + | Ethnic Group | Unknown | + + + Author + + + | Author | [facility] | | | and [place] | + + + | Organization | [facility] | | | and [place] | + + + | Address | Unknown | + + + | Phone | Unavailable | + + + Support + + + + + | Name | Relationship | Address | Phone | + + + + + | Jojo Mathew | ECON | [place] | | | | | [address] | | + + + + + | Iqra Ellis | ECON | [address] | | | | | [place] | | | | | [address] | | + + + + + Care Team Providers + +------+ + | Care Lifter/Driver Name | Role | Phone | + [...] Medication Refill | | 2019 | | [facility] | CIRCULATION ANALYST | | | | | MEDICAL CLINIC [address] | | | | | | [address] [place], | | | | | | [place] [address] | | | | | | [phone] | | | +--------+--------+ + + + [...]
--- OUTSIDE RECORDS SUMMARY | ~2018-11-15 | XMS | Encounter Summary ---
Demographics + + + | Address | [address] | | | [place] [address] | + + + | Home Phone | | + + + | Preferred Language | Unknown | + + + | Marital Status | | + + + | Mandaeism Affiliation | 1077 | + + + | Race | Unknown | + + + | Ethnic Group | Unknown | + + + Author + + + | Author | [facility] | | | and [place] | + + + | Organization | [facility] | | | and [place] | + + + | Address | Unknown | + + + | Phone | Unavailable | + + + Support + + + + + | Name | Relationship | Address | Phone | + + + + + | Jojo Mathew | ECON | [place] | | | | | [address] | | + + + + + | Iqra Ellis | ECON | [address] | | | | | [place] | | | | | [address] | | + + + + + Care Team Providers + +------+ + | Care Coal Trimmer Name | Role | Phone | + [...] + + | 10/27/ | Telephone | [facility] | Kurt Powell | Medication Refill; | | 2018 | | [facility] | E, DO [address] | Medication Refill | | | | MEDICAL CLIN[facility] [address] | [place], [place] | | | | | [address] [facility], | [address] | | | | | [place] [address] | [phone] | | | | | [phone] | | | +--------+ + + + [...]
--- OUTSIDE RECORDS SUMMARY | ~2018-11-15 | XMS | Encounter Summary ---
Demographics + + + | Address | [address] | | | [place] [address] | + + + | Home Phone | | + + + | Preferred Language | Unknown | + + + | Marital Status | | + + + | Mu-Ism Affiliation | 1077 | + + + | Race | Unknown | + + + | Ethnic Group | Unknown | + + + Author + + + | Author | [facility] | | | and [place] | + + + | Organization | [facility] | | | and [place] | + + + | Address | Unknown | + + + | Phone | Unavailable | + + + Support + + + + + | Name | Relationship | Address | Phone | + + + + + | Jojo Mathew | ECON | [place] | | | | | [address] | | + + + + + | Iqra Ellis | ECON | [address] | | | | | [place] | | | | | [address] | | + + + + + Care Team Providers + +------+ + | Care Financial Institution Treasurer Name | Role | Phone | + [...] Medication Refill; | | 2018 | | [facility] | E, DO [address] | Medication Refill | | | | MEDICAL CLINIC [address] | [place], [place] | | | | | [address] [facility], | [address] | | | | | [place] [address] | [phone] | | | | | [phone] | | | +--------+ + + + [...]
--- OUTSIDE RECORDS SUMMARY | ~2018-11-15 | XMS | Encounter Summary ---
Demographics + + + | Address | [address] | | | [place] [address] | + + + | Home Phone | | + + + | Preferred Language | Unknown | + + + | Marital Status | | + + + | Buddhist Affiliation | 1077 | + + + | Race | Unknown | + + + | Ethnic Group | Unknown | + + + Author + + + | Author | [facility] | | | and [place] | + + + | Organization | [facility] | | | and [place] | + + + | Address | Unknown | + + + | Phone | Unavailable | + + + Support + + + + + | Name | Relationship | Address | Phone | + + + + + | Jojo Mathew | ECON | [place] | | | | | [address] | | + + + + + | Iqra Ellis | ECON | [address] | | | | | [place] | | | | | [address] | | + + + + + Care Team Providers + +------+ + | Care Plastic Finisher Name | Role | Phone | + [...] Medication Refill | | 2019 | | [facility] | E, DO [address] | | | | | MEDICAL CLIN[address] | [place], [place] | | | | | [address] [place], | [address] | | | | | [place] [address] | [phone] | | | | | [phone] | | | +--------+--------+ + + + [...]
--- OUTSIDE RECORDS SUMMARY | ~2018-11-15 | XMS | Clinical Summary ---
Demographics + + + | Address | [address] | | | [place] [address] | + + + | Home Phone | | + + + | Preferred Language | Unknown | + + + | Marital Status | | + + + | Anabaptism Affiliation | 1077 | + + + | Race | Unknown | + + + | Ethnic Group | Unknown | + + + Author + + + | Author | [facility] | | | and [place] | + + + | Organization | [facility] | | | and [place] | + + + | Address | Unknown | + + + | Phone | Unavailable | + + + Support + + + + + | Name | Relationship | Address | Phone | + + + + + | Jojo Mathew | ECON | [place] | | | | | [address] | | + + + + + | Iqra Ellis | ECON | [address] | | | | | [place] | | | | | [address] | | + + + + + Care Team Providers + +------+ + | Care Fur Scraper Name | Role | Phone | + +------+ + | uKrt Powell DO | CAROL ANN | | [...] + + + + | Overview: SARAH [id number] Decision | + + + +---+ | [...] Refill | | 2018 | | | 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 | | +--------+ + + + + [...] | | 2018 | | | CC 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 | | +--------+ + + + + [...] N/A: | [place] | | 12/24/ | [id number] | | [employer] | | Castillo | SCIENTIFIC | | 2016 | [id number] | | Chromium Coronary Stent | | ry | MAYKEL - BSCI | | | 5O / | | System Implanted: Qty: 1 on | | | | | | /[id number] | | 01/21/2016 by Abiola Hardwick | | | | | | 025 | | MD [place] | | | | | | | + +-------+--------+ +--------+--------+--------+ | Promus Preimer Monorail | Stent | N/A: | [place] | | 12/10/ | [id number] | | [employer] | | Castillo | SCIENTIFIC | | 2016 | [id number] | | Chromium Coronary Stent | | ry | MAYKEL - BSCI | | | 5O / | | System Implanted: Qty: 1 on | | | | | | /[id number] | | 01/21/2016 by Abiola Hardwick | | | | | | 737 | | MD [place] | | | | | | | + +-------+--------+ +--------+--------+--------+ | Promus Premier Monorail | Stent | N/A: | [place] | | 12/18/ | [id number] | | [employer] | | Castillo | SCIENTIFIC | | 2017 | [id number] | | Chromium Coronary Stent | | ry | MAYKEL - BSCI | | | 0O / | | SystemImplanted: Qty: 1 on | | | | | | /[id number] | | 01/25/2016 by Abiola Hardwick | [...] +--------+ +---------+--------+ | MEDICARE | MEDICA | [id number] | 10/12/19 | [phone] | | Medica | | | RE | | 04-Pre | 5 | | re | | | PART A | | sent | | | | | | AND B | | | | | | + +--------+ +--------+ +---------+--------+ | MEDICARE | MEDICA | [id number] | 02/10/19 | [phone] | | Medica | | | RE | | 17-Pre | 5 | | re | | | PART A | | sent | | | | | | AND B | | | | | | + +--------+ +--------+ +---------+--------+ | HUMANA | HUMANA | [id number] | 02/10/19 | [phone] | | Indemn [...] Person | Self | [birth year] | [address] | | Kranthi | al/Fam | | 1941 | [phone] | [place] | | | po | | | 6 (Home) | [address] | + +--------+ +--------+ + + | Kiran Ellis | Person | Self | [birth year] | [address] | | Kranthi | al/Fam | | 1941 | [phone] | [place] | | | po | | | 6 (Home) | [address] | + +--------+ +--------+ + + Advance Directives Patient has advance care planning documents, and code status on file. For more information, please contact:[facility] [place] [address] + + + + + | Code Status | Date | Date | Comments | | | Activated | Inactivated | | + + + + + | Full Code | 01/22/2016 | 01/27/2016 | | | | 10:39 | 16:03 | | + + + + +
--- OUTSIDE RECORDS SUMMARY | ~2018-11-15 | XMS | Encounter Summary ---
Demographics + + + | Address | [address] | | | [place] [address] | + + + | Home Phone | | + + + | Preferred Language | Unknown | + + + | Marital Status | | + + + | Religion Affiliation | 1077 | + + + [...] [place] | | | | | [address] | | + + + + + | Iqra Ellis | ECON | [address] | | | | | [place] | | | | | [address] | | + + + + + Care Team Providers + +------+ + | Care Steel Estimator Name | Role | Phone | + [...] Medication Refill | | 2019 | | [facility] | E, DO [address] | | | | | MEDICAL CLINIC [address] | [place], [place] | | | | | [address] [place], | [address] | | | | | [place] [address] | [phone] | | | | | [phone] | | | +--------+--------+ + + + [...]
--- OUTSIDE RECORDS SUMMARY | ~2018-11-15 | XMS | Encounter Summary ---
Demographics + + + | Address | [address] | | | [place] [address] | + + + | Home Phone | | + + + | Preferred Language | Unknown | + + + | Marital Status | | + + + | Yazdanism Affiliation | 1077 | + + + | Race | Unknown | + + + | Ethnic Group | Unknown | + + + Author + + + | Author | [facility] | | | and [place] | + + + | Organization | [facility] | | | and [place] | + + + | Address | Unknown | + + + | Phone | Unavailable | + + + Support + + + + + | Name | Relationship | Address | Phone | + + + + + | Jojo Mathew | ECON | [place] | | | | | [address] | | + + + + + | Iqra Ellis | ECON | [address] | | | | | [place] | | | | | [address] | | + + + + + Care Team Providers + +------+ + | Care Cell Inspector Name | Role | Phone | + [...] Medication Question | | 2018 | | [facility] | E, DO [address] | | | | | MEDICAL CLIN[address] | [place], [place] | | | | | [address] [place], | [address] | | | | | [place] [address] | [phone] | | | | | [phone] | | | +--------+ + + + [...]
--- OUTSIDE RECORDS SUMMARY | ~2018-11-15 | XMS | Encounter Summary ---
Demographics + + + | Address | [address] | | | [place] [address] | + + + | Home Phone | | + + + | Preferred Language | Unknown | + + + | Marital Status | | + + + | Sikh Affiliation | 1077 | + + + | Race | Unknown | + + + | Ethnic Group | Unknown | + + + Author + + + | Author | [facility] | | | and [place] | + + + | Organization | [facility] | | | and [place] | + + + | Address | Unknown | + + + | Phone | Unavailable | + + + Support + + + + + | Name | Relationship | Address | Phone | + + + + + | Jojo Mathew | ECON | [place] | | | | | [address] | | + + + + + | Iqra Ellis | ECON | [address] | | | | | [place] | | | | | [address] | | + + + + + Care Team Providers + +------+ + | Care Senior Risk Manager Name | Role | Phone | [...] Medication Refill | | 2019 | | [facility] | E, DO [address] | | | | | MEDICAL CLIN[address] | [place], [place] | | | | | [address] [place], | [address] | | | | | [place] [address] | [phone] | | | | | [phone] | | | +--------+--------+ + + + [...]
--- OUTSIDE RECORDS SUMMARY | ~2018-11-15 | XMS | Encounter Summary ---
Demographics + + + | Address | [address] | | | [place] [address] | + + + | Home Phone | | + + + | Preferred Language | Unknown | + + + | Marital Status | | + + + | Alevism Affiliation | 1077 | + + + | Race | Unknown | + + + | Ethnic Group | Unknown | + + + Author + + + | Author | [facility] | | | and [place] | + + + | Organization | [facility] | | | and [place] | + + + | Address | Unknown | + + + | Phone | Unavailable | + + + Support + + + + + | Name | Relationship | Address | Phone | + + + + + | Jojo Mathew | ECON | [place] | | | | | [address] | | + + + + + | Iqra Ellis | ECON | [address] | | | | | [place] | | | | | [address] | | + + + + + Care Team Providers + +------+ + | Care Cloth Dyer Name | Role | Phone | + [...] Medication Refill | | 2019 | | [facility] | E, DO [address] | | | | | MEDICAL CLIN[address] | [place], [place] | | | | | [address] [place], | [address] | | | | | [place] [address] | [phone] | | | | | [phone] | | | +--------+--------+ + + + [...]
[~2018-11-15 00:41] MED LIST changes: +METHYLPREDNISOLO4 M1 PO
--- OUTSIDE RECORDS SUMMARY | 2018-11-15 00:44 | XMS ---
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 Antonio VISIT COUNT (12 MO.) 4 [facility] TOTAL 4 NOTE: Visits indicate total known visits. ED/UCC VISIT TRACKING (12 MO.) 11/15/2018 00:42 [facility] [place] TYPE: Emergency COMPLAINT: - UNCONSCIOUS 08/30/2018 10:39 [facility] [place] TYPE: Emergency COMPLAINT: - COUGH DIAGNOSES: - Personal history of malignant neoplasm of prostate - Old myocardial infarction - Allergy status to other drugs, medicaments and biological substances status - Other intermediate project manager (current) drug therapy - Essential (primary) hypertension - Presence of coronary angioplasty implant and graft - FDC (current) use of aspirin - Cough - Chronic obstructive pulmonary disease, unspecified - Personal history of nicotine dependence 02/20/2018 20:36 [facility] [place] TYPE: Emergency COMPLAINT: - L SIDED CHEST PAIN DIAGNOSES: - Other detention (current) drug therapy - Other chest pain - Presence of coronary angioplasty implant and graft - Essential (primary) hypertension - Old myocardial infarction - Personal history of malignant neoplasm of prostate - Emphysema, unspecified - FDC (current) use of aspirin 01/14/2018 12:44 [facility] [place] TYPE: Emergency COMPLAINT: - COUGH DIAGNOSES: - Acute upper respiratory infection, unspecified - FDC (current) use of aspirin - Essential (primary) hypertension - Personal history of malignant neoplasm of prostate - Cough - Acute bronchospasm - Other intermediate project manager (current) drug therapy - Personal history of nicotine dependence - Chronic obstructive pulmonary disease, unspecified INPATIENT VISIT TRACKING (12 MO.) No inpatient visits to display in this time frame [email or web address]
[2018-11-15] MEDS ORDERED: DULOXETINE HCL20 MG PO (00:56)
[2018-11-15] MEDS ORDERED: CLONAZEPAM1 MG PO (00:57)
--- NOTE | 2018-11-15 15:27 | EKG ---
[facility] [address] [facility] [place] [address] Signed Sinus bradycardia with 1st degree AV block with occasional premature ventricular complexes Left anterior fascicular block Anteroseptal infarct (cited on or before 21-JAN-2016) Abnormal ECG When compared with ECG of 30-AUG-2018 12:08, premature ventricular complexes are now present Nonspecific T wave abnormality no longer evident in Anterior leads Confirmed by JOSHUA DE ANDA DO ([id number]) on 11/15/2018 3:27:25 PM Electronically Signed By: JOSHUA DE ANDA DO 11/15/18 1527 PATIENT NAME: JOSÉ AGUIRRE Electrocardiogram DATE OF : 36 PHYSICIAN: JOSHUA DE ANDA DO REPORT #: [id number] REPORT IS CONFIDENTIAL AND NOT TO BE RELEASED WITHOUT AUTHORIZATION
== END 2018-11-15 03:00 | disposition home or self-care (01) ==
LOC: ED 00:41
DX: R55 Syncope and collapse (principal); I10 Essential (primary) hypertension; I25.2 Old myocardial infarction; Z85.46 Personal history of malignant neoplasm of prostate; Z87.891 Personal history of nicotine dependence; Z88.8 Allergy status to other drugs, medicaments and biological substances; Z79.02 Long term (current) use of antithrombotics/antiplatelets; Z79.82 Long term (current) use of aspirin; Z79.899 Other long term (current) drug therapy
CPT/HCPCS: 80053; 83735; 84484; 85025; 93005; 93010; 96360; 99284-25; J7030

== ENCOUNTER 2020-09-11 13:38 | Inpatient (IN) | payer MEDICARE ==
[~2020-09-11] VITALS: Ht 177.8 cm; Wt 57.5 kg
--- NOTE | ~2020-09-11 | EKG ---
[facility] [address] [place], [place] [address] Draft EK completed, results pending confirmation PATIENT NAME: ABDOULAYEJOSÉ COMBS Electrocardiogram DATE OF : 36 PHYSICIAN: PRELIMINARY REPORT #: [id number] REPORT IS CONFIDENTIAL AND NOT TO BE RELEASED WITHOUT AUTHORIZATION
[~2020-09-11 13:38] MED LIST changes: +DULOXETINE HCL20 MG PO
--- OUTSIDE RECORDS SUMMARY | 2020-09-11 13:40 | XMS ---
PreManage Notification: JOSÉ AGUIRRE Security Child Day Care Provider Events No recent Security Events currently on file CRITERIA MET - PDMP CARE PROVIDERS CHAMP CRANE [facility] 08/31/2018-Current PHONE: [phone] Annette has no Care Guidelines for this patient. E.Srinivasa VISIT COUNT (12 MO.) 1 [facility] 1 CONSTANCE Bermudez TOTAL 2 NOTE: Visits indicate total known visits. ED/UCC VISIT TRACKING (12 MO.) 09/11/2020 13:[address] 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
[2020-09-11] MEDS ORDERED: TRELEGY ELLIPT1 EACH IH (14:17)
[2020-09-11] MEDS ORDERED: TAMSULOSIN HCL0.4 MG PO (14:18)
[2020-09-11] MEDS ORDERED: TRAMADOL HCL50 MG PO (14:19)
--- NOTE | 2020-09-11 18:20 | NUR ---
79 yr old male patient admitted to ccu from ED VIA STRETCHER DR. CRAWLEY WITH DX OF GIB. PATIENT STATES HE BEGAN HAVING BLOODY STOOLS LAST NIGHT AROUND MIGHTNIGHT. HAS HAD TWO SYNCOPAL EPISODES TODAY. DENIES ABD PAIN, N/V. UPON ADMIT TO CCU PATIENT IS ALERT AND COOPERATIVE. HX OF BACK PAIN. IS VERY [place]. ADMISSION PROCESS STARTED.
--- NOTE | 2020-09-11 19:03 | NUR ---
MIRLAX STARTED ORDERED.
--- NOTE | 2020-09-11 19:44 | NUR ---
REPORT RECEIVED FROM BOSSMAN [place]. PT AWAKE IN BED. C/O BEING COLD AFTER DRINKING FIRST HALF OF MIRALAX GATORADE. WARM BLANKET PROVIDED. PT DENIES PAIN, OTHER NEEDS. RESTING HR 47. RR 20 SPO2 100% ON ROOM AIR.
--- NOTE | 2020-09-11 19:46 | NUR ---
DR CAMPOS IN SEEING PT.
--- NOTE | 2020-09-11 20:00 | NUR ---
PT CALLS TO USE BSC, HAD 800ML LIQUID MEDIUM RED STOOL. STATED "I FEEL DIZZY" WHILE UP, HR WENT FROM 47 TO 67. ASSISTED BACK TO BED, HR BACK DOWN TO 40'S AND DIZZINESS GONE. DR RIDDLE ON UNIT, INFORMED OF THIS. ORDERS GIVEN FOR ENEMA AND PLAN FOR SCOPE TOMOROW.
--- NOTE | 2020-09-11 20:15 | NUR ---
1000ML SOAPSUDS ENEMA GIVEN, PT ABLE TO TOLERATE, GIVEN CALL LIGHT AND INSTRUCTED TO HOLD LONG POSSIBLE AND CALL WHEN READY TO USE COMMODE.
--- NOTE | 2020-09-11 20:35 | NUR ---
PT CALLS TO USE COMMODE, HAD RETURN OF 500ML MEDIUM LIQUID STOOL, NOTHING SOLID. BACK TO BED WITH CALL LIGHT IN HAND.
--- NOTE | 2020-09-11 20:42 | NUR ---
CONSENT SIGNED BY PT, HAS NO QUESTIONS AT THIS TIME, STATES HE UNDERSTANDS THE PLAN AND RISKS.
--- NOTE | 2020-09-11 20:43 | NUR ---
PT CALLS TO USE BSC, HAD 800ML LIQUID MEDIUM RED STOOL, NO FORMED STOOL NOTED. STATED "I FEEL DIZZY" WHILE UP ON COMMODE, HR WENT FROM 47-67. BACK TO BED WITH ASSIT, NO LONGER FEELING DIZZY AND HR BACK DOWN TO 40'S. DR RIDDLE INFORMED. ORDERS GIVEN FRO ENEMA AND SCOPE TOMORROW.
--- NOTE | 2020-09-11 21:44 | NUR ---
UP TO BSC FOR 400ML LIQUID DARK RED STOOL, PT REPORTS BEING DIZZY, BACK TO BED WILL CALL LIGHT IN HAND.
--- NOTE | 2020-09-11 23:07 | NUR ---
UP TO BSC FOR 200ML LIQUID RED STOOL/BACK TO BED.
--- NOTE | 2020-09-12 01:15 | NUR ---
PT CALLS TO USE BSC, CONT LIQUID RED STOOL WITH C/O OF DIZZINESS. BACK TO BED TO TRY TO SLEEP
--- NOTE | 2020-09-12 02:10 | NUR ---
PT SLEEPING, O2 SATS HAVE BEEN 88% WHILE ASLEEP CONSTANT. O2 AT 2L/NC APPLIED. PT WOKE UP, DENIES NEEDS THEN BACK TO SLEEP.
--- NOTE | 2020-09-12 03:15 | NUR ---
UP TO BSC TO VOID AND HAVE SMALL BLOODY LIQ STOOL. DEO BEING UP WELL.
--- NOTE | 2020-09-12 04:46 | NUR ---
RECEIVED REPORT FROM JAYLENE ROMERO. pt RESTING IN BED. REPORTED NOT SLEEPING WELL TONIGHT. LABS DRAWN. NO REQUESTS AT THIS TIME. CALL LIGHT WITHIN REACH.
--- NOTE | 2020-09-12 07:16 | EKG ---
[facility] [address] [place] [address] Signed Sinus bradycardia with 1st degree AV block Left axis deviation Inferior infarct , age undetermined Anteroseptal infarct (cited on or before 21-JAN-2016) Abnormal ECG When compared with ECG of 15-NOV-2018 00:52, premature ventricular complexes are no longer present Nonspecific T wave abnormality now evident in Inferior leads Confirmed by SALEEM CRAWLEY MD ([id number]) on 09/12/2020 7:16:16 AM Electronically Signed By: SALEEM CRAWLEY MD 09/12/20 0716 PATIENT NAME: JOSÉ AGUIRRE Electrocardiogram DATE OF : 36 PHYSICIAN: SALEEM CRAWLEY MD REPORT #: [id number] REPORT IS CONFIDENTIAL AND NOT TO BE RELEASED WITHOUT AUTHORIZATION
--- NOTE | 2020-09-12 07:55 | NUR ---
PT OFF FLOOR WITH JAYLENE LOUIS. PT DENTURES REMOVED AND PLACED IN BATHROOM. LR HANGING. CHART PRINTED. CONSENT ON CHART. REPORT RECEIVED FROM JAYLENE CHRISTENSEN.
[2020-09-12] MEDS ORDERED: VENTOLIN HFA18 GM INH (08:09)
[2020-09-12] MEDS ORDERED: METOPROLOL SUC100 MG PO (08:10)
[2020-09-12] MEDS ORDERED: OMEPRAZOLE20 MG PO (08:10)
[2020-09-12] MEDS ORDERED: ATORVASTATIN CA40 MG PO (08:11)
--- NOTE | 2020-09-12 09:40 | NUR ---
09/12/20 0940 Sonya Roberts 0919 PT ARRIVED IN PACU NON RESPONSIVE TO NOXIOUS STIMULI. ABD SOFT AND LAYING ON L SIDE. 0925 PT REACTIVE. AWAKENS TO VERBAL SITMULI. 0935 SITTING UP IN BED TALKING TO STAFF. NO C/O'S.
--- NOTE | 2020-09-12 10:01 | NUR ---
PT BACK FROM PACU. AWAKE AND AMBULATED TO BATHROOM AND BED ON OWN. PT TALKING ON PHONE AND WANTS TO KNOW WHEN HE CAN GO HOME. VS STABLE. HAS AN APPOINTMENT IN [facility] TOMORROW TO SEE DR CRANE.
--- NOTE | 2020-09-12 10:29 | NUR ---
PT SITTING UP IN BED EATING BREAKFST. CALL LIGHT IN REACH. DENIES CONCERNS.
--- NOTE | 2020-09-12 11:32 | NUR ---
Patient to medical floor, a&ox4. Vital signs are stable, afebrile. Patient denies pain at this time. Oriented patient to room and call light. at bedside. No needs.
--- NOTE | 2020-09-12 12:30 | NUR ---
PATIENT REPORTED THAT HE HAS A DR. CRANE APPOINTMENT TOMORROW AT 2:30PM AND THAT HIS HAS A AN APPOINTMENT IN THAT SAME TIME FRAME. DR. CRAWLEY NOTIFIED.
[2020-09-12] MEDS ORDERED: MSM PO (12:53)
[2020-09-12] MEDS ORDERED: GINKGO BILOBA40 M1 PO (12:54)
[2020-09-12] MEDS ORDERED: STOOL SOFTENER100 MG PO (12:54)
[2020-09-12] MEDS ORDERED: VITAMIN C500 M1 PO (12:54)
[2020-09-12] MEDS ORDERED: APPLE CIDER VI300 MG PO (12:54)
--- NOTE | 2020-09-12 12:55 | NUR ---
MED REC COMPLETE
--- NOTE | 2020-09-12 14:59 | NUR ---
PATIENT IN BED WATCHING TV, VISITOR IN ROOM. VITALS AND I&O'S CHARTED. CALL LIGHT IN REACH. NO FURTHER NEEDS AT [facility] [place].
--- NOTE | 2020-09-12 15:04 | NUR ---
Patient resting in bed, alert and oriented x4. Patient denies pain. No needs reported. Personal supplies and call light within reach.
--- NOTE | 2020-09-12 15:31 | NUR ---
CONSULT RECEIVED FOR BMI <18.5. NOTED PATIENT ALSO ON HIGH-FIBER DIET. SPOKE WITH PATIENT AND THIS AFTERNOON. STATED THAT PATIENT HAS UNINTENTIONALLY LOST ~20 LBS IN THE PAST YEAR, WHICH INDICATES A 13.6% CHANGE IN BODY WEIGHT. THE PATIENT ENDORSES THIS WAS DUE TO A DECREASED APPETITE. HE LIKES CEREAL AND USUALLY EATS IT FOR BREAKFAST, ALONG WITH HALF AND HALF INSTEAD OF MILK. FOR DINNER, THE PATIENT AND HIS HAVE VEGETABLES, AND A MIDNIGHT SNACK TYPICALLY CONSISTS OF ICE CREAM WITH FRUIT OR A CUPCAKE. HE DOES NOT NORMALLY DRINK ENSURE. UPON PHYSICAL EXAMINATION, THE PATIENT SHOWED SIGNS OF SEVERE MALNUTRITION IN THE PATELLAR REGION BONES WERE PROMINENT AND THERE WERE LITTLE SIGNS OF MUSCLE AROUND THE KNEE AND CALF. HE IS ACTIVE HE REGULARLY DOES GARDNENING AND MOWS THE LAWN. RD DELIVERED NUTRITION EDUCATION ON HIGH-FIBER FOOD ITEMS AND PROVIDED AN EDUCATIONAL HANDOUT. PROVIDED SUGGESTIONS FOR INCREASING FIBER CONTENT IN MEALS AND SNACKS BY ADDING WHOLE WHEAT CRACKERS, APPLE SLICES, BANANAS, BEANS, AND OTHER HIGH-FIBER CEREALS. ALSO ENCOURAGED PATIENT TO INCREASE HIS ORAL INTAKE TO PREVENT FURTHER WEIGHT LOSS.
--- NOTE | 2020-09-12 19:35 | NUR ---
REPORT RECEIVED FROM DAY SHIFT RN. PT LYING IN BED ALERT AND ORIENTED. SBA TO BR TO VOID. PT WEAK AND DIZZY UPON STANDING. BACK TO BED, DEO WELL. DENIES FURTHER NEEDS AT THIS TIME. WHITE BOARD UPDATED. CALL LIGHT IN REACH.
--- NOTE | 2020-09-12 21:47 | NUR ---
EVENING ASSESSMENT COMPLETE. SCHEDULED MEDS ADMINISTERED PER EMAR. PT DENIES PAIN OR NAUSEA. TELE #[address] HR 60'S. SpO2 96% ON RA. SBA TO BSC TO VOID CLEAR YELLOW URINE. BACK TO BED, DEO WELL. GAIT WEAK AND UNSTEADY AT TIMES. HOME OXYGEN MONITOR IN PLACE. PT DENIES QUESTIONS OR CONCERNS. CALL LIGHT IN REACH. BED ALARM FOR SAFETY.
--- NOTE | 2020-09-12 22:06 | NUR ---
CCU NOTIFIED THIS RN OF CHANGES IN TELEMETRY. DR. CRAWLEY NOTIFIED. STAT EKG ORDERED. PT IN BED LYING ON LEFT SIDE. DENIES CHEST PAIN OR SOB.
--- NOTE | 2020-09-13 00:30 | NUR ---
PATIENT CALLED TO USE THE BATHROOM. 1SBA TO BEDSIDE COMMODE. PATIENT IS BACK IN BED. NO FURTHER NEEDS AT THIS TIME. BED ALARM ON FOR SAFETY.
--- NOTE | 2020-09-13 00:48 | EKG ---
[facility] [address] [facility] [place] [address] Signed Sinus rhythm with 1st degree AV block Left axis deviation Cannot rule out Inferior infarct (cited on or before 22-FEB-2016) Anterolateral infarct (cited on or before 21-JAN-2016) Abnormal ECG When compared with ECG of 12-SEP-2020 22:21, (Unconfirmed) No significant change was found Confirmed by SALEEM CRAWLEY MD ([id number]) on 09/13/2020 12:48:07 AM Electronically Signed By: SALEEM CRAWLEY MD 09/13/20 0048 PATIENT NAME: JOSÉ AGUIRRE Electrocardiogram DATE OF : 36 PHYSICIAN: SALEEM CRAWLEY MD REPORT #: [id number] REPORT IS CONFIDENTIAL AND NOT TO BE RELEASED WITHOUT AUTHORIZATION
--- NOTE | 2020-09-13 01:41 | NUR ---
REQUESTED MELATONIN FOR PT FOR SLEEP. DR CRAWLEY ORDERED
--- NOTE | 2020-09-13 02:03 | NUR ---
PT LYING ON RIGHT SIDE WITH EYES CLOSED, DOES NOT OPEN EYES WHEN THIS RN ENTERS ROOM. WILL HOLD MELATONIN FOR NOW.
--- NOTE | 2020-09-13 03:35 | NUR ---
BED ALARMING. PATIENT GOT UP TO USE THE BEDSIDE COMMODE. PATIENT IS BACK IN BED. PRIMARY RN WAS WITH PATIENT. BED ALARM ON FOR SAFETY.
--- NOTE | 2020-09-13 03:38 | NUR ---
BED ALARM SOUNDING. SBA TO BSC TO VOID. GAIT STEADY. HR SPIKED TO 168 ON TELE MONIITOR WITH ACTIVITY. PT DENIES CHEST PAIN OR DIZZINESS. BACK TO BED. ASSESSMENT COMPLETE. NO FURTHER NEEDS. BED ALARM FOR SAFETY. CALL LIGHT IN REACH.
--- NOTE | 2020-09-13 06:03 | NUR ---
LAB IN ROOM FOR MORNING DRAW. VS AND I&O COMPLETE. PT DENIES NEEDS AT THIS TIME. WISHES TO CONTINUE TO SLEEP. CALL LIGHT IN REACH. BED ALARM FOR SAFETY.
--- NOTE | 2020-09-13 07:25 | NUR ---
Patient sleeping, eyes closed, respirations even and non labored. Patient has no distress. Personal supplies and call light within reach.
--- NOTE | 2020-09-13 08:25 | NUR ---
Pt states he lives in a mobile home with his and 2 adult sons. Sons do on assist them and one is >500 pounds. He states they financi ally support sons.Pt states he has not had any issues getting in and out of home. Pt states they are financially ok, but live paycheck to paycheck. They do not use the food bruner in [facility], he is aware of [employer] but they have not needed any assistance from them. Pt plans on dc to home as soon as possible with his today. He has an appoint ment in [facility] with his PCP at noon. Informed I will remind Dr. Morse, but she had stated yesterday she would dc in time for appt if pt was doing well.
--- NOTE | 2020-09-13 08:38 | NUR ---
Patient tachycardic, heart rate ranging from 102-160bpm per tele, non sustained. Patient did have a coughing fit after swallowing his morning medications. Patient is asymptomatic aside from coughing, he denies sob, chest pain and or palpitations. Dr. Morse notified. Patient given his scheduled metoprolol at this time.
--- NOTE | 2020-09-13 08:43 | NUR ---
TELEMETRY MONITORING: PTS HEART RATE FREQUENTLY GOING ABOVE 150'S. AT TIMES SUSTAINING IN THE 160'S. MED/SURG CHARGE, DELMA, NOTIFIED. JAYLENE ZHANG ALSO NOTIFIED.
[2020-09-13] MEDS ORDERED: PANTOPRAZOLE SO40 MG PO (08:49)
--- NOTE | 2020-09-13 09:05 | NUR ---
Chart copied and given to pt. to take to his appointment with PCP. denies other needs.
--- NOTE | 2020-09-13 11:37 | PATH ---
[facility] [address] [place], [place] [address] Signed SPECIMEN(S): A STOMACH BIOPSY SPECIMEN SOURCE: A. STOMACH BIOPSY CLINICAL HISTORY: Preop: GI bleed. Postop EGD: Normal gastric remnant. Postop Colon: Diverticula, internal hemorrhoids/bleeding, polyps unresectable. MICROSCOPIC DESCRIPTION: Histologic sections of all submitted blocks are examined by light microscopy. These findings, together with the gross examination, support the pathologic diagnosis. FINAL PATHOLOGIC DIAGNOSIS: Stomach, biopsy: - Oxyntic mucosa with chronic, inactive gastritis and features of fundic gland polyp(s). - Negative for Helicobacter organisms on HE stain. - Negative for dysplasia or malignancy. NAL:cml:C2NR GROSS DESCRIPTION: The specimen, labeled "CH, gastric remnant biopsy," is received in formalin and consists of two maldonado soft tissue fragment(s) that measure 0.2 cm in greatest dimension. The specimen is entirely submitted in cassette (A1). JS (under the direct supervision of a pathologist) The Gross Description was prepared using a voice recognition system. The report was reviewed for accuracy; however, sound-alike word errors, addition and/or deletions may occur. If there is any question about this report, please contact Client Services. PERFORMING LABORATORY: The technical component was performed by [employer], [address] [place] [id number] (Race Relations Professor: Kennedi Plata MD; CLIA# [id number]). [facility], [address] [address] (CLIA# [id number]). Diagnostician: Cassi Harp MD Pathologist PATIENT NAME: JOSÉ AGUIRRE PATHOLOGY DATE OF : 36 REPORT #: [id number] PHYSICIAN: [facility] PCP: KALIA CRANE DO REPORT IS CONFIDENTIAL AND NOT TO BE RELEASED WITHOUT AUTHORIZATION [address] [place] [address] Signed Electronically Signed 09/13/2020 Copies: ~ PATIENT NAME: JOSÉ AGUIRRE PATHOLOGY DATE OF : 36 REPORT #: [id number] PHYSICIAN: [facility] PCP: KALIA CRANE DO REPORT IS CONFIDENTIAL AND NOT TO BE RELEASED WITHOUT AUTHORIZATION
--- NOTE | 2020-09-13 11:41 | CONS ---
[facility] [address] [place], [place] [address] Signed DATE OF CONSULTATION: 09/11/2020 CONSULTING PHYSICIAN: Leslie Riddle MD REQUESTING PHYSICIAN: Dr. Saleem Morse. PROBLEM: Recent blood per rectum. HISTORY OF PRESENT ILLNESS: This elderly 79-year-old white man with advanced COPD, presented to the emergency room, evaluated by Dr. Herrera today at approximately 4:15 p.m. He had awakened this morning with blood per rectum. 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 He did have some abdominal cramping. He takes no anticoagulants. He has noted upon close review of his medical records in particular in relation to evaluation by Dr. Corral in 2011, a problem of secondary polycythemia for which therapeutic phlebotomy was undertaken in 2006. Additionally, the patient is known to me having undergone colonoscopy in April of 2012 showing a small low rectal polyp and melanosis coli. The patient's evaluation showed a hematocrit that was certainly normal at 46 with a hemoglobin of 15.1. Chemistry studies were notable for a creatinine of 1.06, but with a GFR of greater than 60, calcium of 8.4, albumin 3.7. Coag studies showed an INR of 1.20. The patient is not known to be taking anticoagulation and Coumadin. His medications at the time of admission include tramadol, clonazepam, duloxetine, Trelegy, Plavix, ipratropium nasal spray, Ventolin (albuterol) inhaler, metoprolol, omeprazole, tamsulocin and atorvastatin. ALLERGIES: He has allergies to lisinopril and bee stings. The patient's rectal bleeding, though not profound, has been notable and the patient was admitted by Dr. Morse for further management as he was considered to have a syncopal episode the preceding night. He is and his is able to give some history, but the patient himself poorly articulates his presenting complaint. The patient has had cardiac stent placement in 2016 for which he remains on aspirin and Plavix. The patient has had a hemorrhoidectomy by Dr. Luisito Diez in the past and history of Electronically Signed By: LESLIE RIDDLE MD 09/13/20 1141 PATIENT NAME: JOSÉ AGUIRRE CONSULTATION DATE OF : 36 REPORT #: [id number] PHYSICIAN: LESLIE RIDDLE MD PCP: KALIA CRANE DO REPORT IS CONFIDENTIAL AND NOT TO BE RELEASED WITHOUT AUTHORIZATION [address] [address] Signed prostate cancer with resection a number of years ago. He has also had partial gastrectomy in the 1960s related to peptic ulcer disease. Of note, the patient has had no hematemesis. He denies any abdominal pain. CURRENT MEDICATIONS: Include: 1. Fluticasone. 2. Tamsulocin. 3. Tramadol. 4. Duloxetine. 5. Clonazepam. 6. Aspirin. 7. Cholecalciferol. 8. Atorvastatin. 9. Omeprazole. 10. Multivitamin. 11. Albuterol. 12. Plavix. 13. Metoprolol. 14. Albuterol inhaler as noted. Notably, the patient has had no hematemesis and he denies abdominal pain particularly. He does have a fair amount of constipation ongoing and has taken a clear medication for that he says. PHYSICAL EXAMINATION: GENERAL: This is a thin white man who is somewhat hard of hearing. He has a burr. NECK: Trachea is midline. CHEST: Shows normal respiratory excursion without tachypnea. HEART: Regular without murmur. ABDOMEN: Quite thin and flat, easily palpated. There is no palpable mass. No ascites. EXTREMITIES: Show no clubbing, cyanosis, or edema. I have reviewed a CT scan that was performed during this hospitalization, which shows possible fecal impaction with a somewhat distended rectum. Bony windows showed no lytic or blastic lesions. The rectum itself was distended, contained a large amount of fecal material. The rectum is 8.4 cm in maximum dimension. There is a broad transition at the anal canal, but no obvious mass. ASSESSMENT: The patient has had some rectal bleeding, which may or may not be related to the high fecal load noted on the CT scan. A stercoral ulceration would certainly account for such a finding. Electronically Signed By: LESLIE RIDDLE MD 09/13/20 1141 PATIENT NAME: JOSÉ AGUIRRE CONSULTATION DATE OF : 36 REPORT #: [id number] PHYSICIAN: LESLIE RIDDLE MD PCP: KALIA CRANE DO REPORT IS CONFIDENTIAL AND NOT TO BE RELEASED WITHOUT AUTHORIZATION [facility] [address] [place] [id number] Signed I was advised of this admission by Dr. Morse, but unaware or perhaps it was not conveyed that the patient may have some fecal impaction of the sigmoid colon. He had already been recommended to start a MiraLAX bowel prep, which he has to began in earnest. I would recommend two tap water enemas, anticipating oral bowel preparation to allow for endoscopic evaluation tomorrow. The risk of bleeding, infection, and perforation were reviewed with him. Additionally, consideration would be made for upper endoscopy. It is well known that partial gastrectomy with anastomosis does confer a somewhat higher risk of anastomotic neoplasm over a year's time. The patient has underlying degenerative disk disease and certainly advanced COPD. Assistance with anesthesia for safe sedation for upper and lower endoscopic evaluation would be much appreciated. The risk of bleeding, infection, perforation, and so forth were reviewed with him. He understands and wished to proceed. PLAN: 1. Tonight tap water enemas x2. 2. Daily to take MiraLAX prep anticipating upper endoscopy and colonoscopy tomorrow with his propofol sedation technique. Leslie Riddle MD JM/MODL /[id number] cc: Saleem Morse MD Copies: SALEEM MORSE MD ~ Electronically Signed By: LESLIE RIDDLE MD 09/13/20 1141 PATIENT NAME: JOSÉ AGUIRRE CONSULTATION DATE OF : 36 REPORT #: [id number] PHYSICIAN: LESLIE RIDDLE MD PCP: KALIA CRANE DO REPORT IS CONFIDENTIAL AND NOT TO BE RELEASED WITHOUT AUTHORIZATION
--- NOTE | 2020-09-13 11:41 | OR ---
[facility] [address] [place], [place] [address] Signed DATE OF OPERATION: 09/12/2020 SURGEON: Leslie Riddle MD PREOPERATIVE DIAGNOSES: 1. Persistent rectal bleeding. 2. Multiple medical problems. POSTOPERATIVE DIAGNOSES: 1. Anatomy consistent with antrectomy with Billroth I anastomosis, no evidence of lesion to account for bleeding. 2. Colon with diverticulosis and internal hemorrhoids; one internal hemorrhoid likely source of bleeding. 3. Small polyps, left colon (left unresected). PROCEDURE: 1. Esophagogastroduodenoscopy with biopsy. 2. Total colonoscopy to cecum. ANESTHESIA: Intravenous sedation, propofol infusional technique, Major Mistry CRNA. INDICATION: This 79-year-old white man was admitted by Dr. Morse with syncopal episode and found to have some rectal bleeding. He has had a number of medical problems in the past including emphysema and COPD. The patient has been on aspirin and Plavix related a history of chronic coronary artery disease and cardiac stent placement in 2016. He is known to have partial gastrectomy in the 1960s related to ulcer disease. He has had no associated hematemesis. He is hemodynamically stable. Concern is maintained by Dr. Morse that a worrisome lesion may account for bleeding and on that basis, requests upper endoscopy and colonoscopy to be performed. The risks of bleeding, infection, and perforation related to those procedures were reviewed with the patient. He understands and wished to proceed. FINDINGS: Upper endoscopy demonstrated a partial gastrectomy with likely B1 (Billroth-I) anastomosis. There was no sign of ulceration. CLOtest was negative. Esophagus was normal. On colonoscopy, the prep was quite good. Complete colonoscopy was undertaken of the Electronically Signed By: LESLIE RIDDLE MD 09/13/20 1141 PATIENT NAME: JOSÉ AGUIRRE OPERATIVE REPORT DATE OF : 36 REPORT #: [id number] PHYSICIAN: LESLIE RIDDLE MD PCP: KALIA CRANE DO REPORT IS CONFIDENTIAL AND NOT TO BE RELEASED WITHOUT AUTHORIZATION [facility] [address] [place], [place] [address] Signed cecum without question. Had scattered diverticula throughout the colon. There was no sign of blood proximal to the left colon at all. In the rectum, there were hemorrhoidal changes and one area that looked to be excoriated and very likely the source of his recent rectal bleeding. Notably, there were three small adenomatous polyps in the left colon. Normally, these would be resected, but given his bleeding situation, I elected against resecting and at this time, so as to not , the source of bleeding should it be persistent or in particular should it worsen. DESCRIPTION OF PROCEDURE: The patient was brought to the surgical endoscopy suite and placed in lateral decubitus position, given intravenous sedation with propofol infusional technique with full cardiopulmonary monitoring by the pond sawyer. A bite block was placed. An Olympus video upper endoscope was passed in the hypopharynx. The vocal cords were visualized as normal. The scope was advanced to the esophagus, throughout its length, it was normal. Scope was passed to a small gastric remnant from prior antrectomy. The stomach itself had mild chronic inflammation, but no sign of ulceration and certainly no neoplasm. There was a small amount of bile within it. The scope was passed through a relatively small outlet into a duodenal segment showing no sign of ulceration of the stoma nor ulceration of the jejunum. The scope was withdrawn and biopsies taken of the gastric remnant for both RAJIV and pathologic testing. The scope was withdrawn. There were no findings of the esophagus of concern. Plans were then made for colonoscopy. Digital rectal examination showed a lax anal rectal sphincter tone. The Olympus video colonoscope was passed in the rectum. There was some moderate reddish bloody effluent noted. The scope was manipulated throughout the colon noting diverticular change of the sigmoid and left colon. Scope was ultimately passed to the cecum. There was essentially no sign of bloody fluid more proximal than the left mid descending colon. The cecum was clearly intubated. There was no sign of abnormality there. The scope was carefully withdrawn, examination throughout showed no sign of abnormality until approximately the proximal left colon where some adenomatous polyps were seen. They were small, not worrisome and certainly not ulcerated or bleeding. They were left in situ and the issue of uncertainty as to source of bleeding and not wanting to resect them at this time possibly confusing the picture should significant bleeding occur during this hospitalization. Careful withdrawal showed no other abnormalities in the diverticula of the sigmoid. Retroflexed view of the rectum demonstrated internal hemorrhoidal changes and close inspection showed one of them to be having been excoriated and likely the source of the bleeding previously. The scope was removed. The patient was taken to recovery room in good condition. CONCLUDING DIAGNOSIS: Most likely the rectal bleeding is related to internal hemorrhoidal changes. Since Electronically Signed By: LESLIE RIDDLE MD 09/13/20 1141 PATIENT NAME: JOSÉ AGUIRRE OPERATIVE REPORT DATE OF : 36 REPORT #: [id number] PHYSICIAN: LESLIE RIDDLE MD PCP: KALIA CRANE DO REPORT IS CONFIDENTIAL AND NOT TO BE RELEASED WITHOUT AUTHORIZATION [facility] [address] [place] [address] Signed patient does not have a low hematocrit or profound bleeding, we will simply initiate high-fiber diet. If recurrent or persistent bleeding should be noted then, anoscopic hemorrhoidal ligation will be undertaken. Consideration will be made for repeat colonoscopy with polypectomy in the future once the issue of rectal bleeding has passed. MD NADIR Olsen/MODL /[id number] cc: DO Zari Serrato MD Copies: KALIA CRANE CYNTHIA MD ~ Electronically Signed By: LESLIE RIDDLE MD 09/13/20 1141 PATIENT NAME: JOSÉ AGUIRRE OPERATIVE REPORT DATE OF : 36 REPORT #: [id number] PHYSICIAN: LESLIE RIDDLE MD PCP: KALIA CRANE DO REPORT IS CONFIDENTIAL AND NOT TO BE RELEASED WITHOUT AUTHORIZATION
== END 2020-09-13 09:55 | disposition home or self-care (01) | DRG 395 ==
LOC: ED 13:38 → CCU 17:16 → MS 09-12 11:25
PROVIDERS: Surgery; ADMIT Internal Medicine; ATTEND Internal Medicine
PROC: 0DB68ZX Excision of Stomach, Via Natural or Artificial Opening Endoscopic, Diagnostic (ICD-10-PCS; principal; 2020-09-12 08:00)
PROC: 0DJD8ZZ Inspection of Lower Intestinal Tract, Via Natural or Artificial Opening Endoscopic (ICD-10-PCS; 2020-09-12 08:00)
DX: K64.8 Other hemorrhoids (principal); K29.70 Gastritis, unspecified, without bleeding; J43.9 Emphysema, unspecified; M19.90 Unspecified osteoarthritis, unspecified site; K57.30 Diverticulosis of large intestine without perforation or abscess without bleeding; I25.10 Atherosclerotic heart disease of native coronary artery without angina pectoris; K63.5 Polyp of colon; I10 Essential (primary) hypertension; I25.2 Old myocardial infarction; Z85.46 Personal history of malignant neoplasm of prostate; Z95.5 Presence of coronary angioplasty implant and graft; Z98.890 Other specified postprocedural states; Z87.891 Personal history of nicotine dependence; Z91.030 Bee allergy status; Z88.8 Allergy status to other drugs, medicaments and biological substances; Z79.02 Long term (current) use of antithrombotics/antiplatelets; Z79.899 Other long term (current) drug therapy
CPT/HCPCS: 74177; 80048; 80053; 83690; 85025; 85610; 85730; 86850; 86900; 86901; 93005; 93010; 99285-25; C9113; C9803; J2001; J2704; J7030; Q9967; U0003

== ENCOUNTER 2020-12-21 17:31 | Emergency (ER) | payer MEDICARE ==
[~2020-12-21] VITALS: Ht 177.8 cm; Wt 59.9 kg
[~2020-12-21 17:31] MED LIST changes: +APPLE CIDER VI300 MG PO; +ATORVASTATIN CA40 MG PO; +GINKGO BILOBA40 M1 PO; +METOPROLOL SUC100 MG PO; +MSM PO; +PANTOPRAZOLE SO40 MG PO; +STOOL SOFTENER100 MG PO; +TAMSULOSIN HCL0.4 MG PO; +TRELEGY ELLIPT1 EACH IH; +VENTOLIN HFA18 GM INH; +VITAMIN C500 M1 PO
--- OUTSIDE RECORDS SUMMARY | 2020-12-21 17:34 | XMS ---
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 08/31/2018-Current PHONE: [phone] Annette has no Care Guidelines for this patient. E.Srinivasa VISIT COUNT (12 MO.) 1 [facility] 2 [facility] TOTAL 3 NOTE: Visits indicate total known visits. ED/UCC VISIT TRACKING (12 MO.) 12/21/2020 17:32 [facility] TYPE: Emergency COMPLAINT: - ABD PAIN 09/11/2020 13:39 [facility] [place] TYPE: Emergency COMPLAINT: - RECTAL BLEEDING 04/04/2020 11:[address] 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 - Vision Changes - Hallucinations INPATIENT VISIT TRACKING (12 MO.) 09/11/2020 17:16 [facility] [place] TYPE: Medical Surgical COMPLAINT: - GI BLEED DIAGNOSES: - Emphysema, unspecified - Atherosclerotic heart disease of three affiliated coronary artery without angina pectoris - nursing home (current) use of antithrombotics/antiplatelets - Emphysema, unspecified - Unspecified osteoarthritis, unspecified site - Other hemorrhoids - Personal history of nicotine dependence - Polyp of colon - Unspecified osteoarthritis, unspecified site - Diverticulosis of large intestine without perforation or abscess without bleeding - Gastritis, unspecified, without bleeding - Diverticulosis of large intestine without perforation or abscess without bleeding - Personal history of malignant neoplasm of prostate - Presence of coronary angioplasty implant and graft - Other specified postprocedural states - Other specified postprocedural states - Essential (primary) hypertension - Other mcfp (current) drug therapy - Bee allergy status - Allergy status to other drugs, medicaments and biological substances - Presence of coronary angioplasty implant and graft - Bee allergy status - Personal history of nicotine dependence - Essential (primary) hypertension - Gastritis, unspecified, without bleeding - Old myocardial infarction - nursing home (current) use of antithrombotics/antiplatelets - Other hemorrhoids - Old myocardial infarction - Allergy status to other drugs, medicaments and biological substances - Personal history of malignant neoplasm of prostate - Other terminologist (current) drug therapy - Hemorrhage of anus and rectum - Polyp of colon - Atherosclerotic heart disease of three affiliated coronary artery without angina pectoris [email or web address]
--- NOTE | 2020-12-22 22:29 | EKG ---
[facility] [address] [facility] [place] [address] Signed Sinus bradycardia with 1st degree AV block with frequent premature ventricular complexes Left anterior fascicular block Anterior infarct (cited on or before 21-JAN-2016) Abnormal ECG When compared with ECG of 12-SEP-2020 22:22, premature ventricular complexes are now present Questionable change in initial forces of Lateral leads Confirmed by JOSHUA DE ANDA DO ([id number]) on 12/22/2020 10:29:08 PM Electronically Signed By: JOSHUA DE ANDA DO 12/22/20 2229 PATIENT NAME: JOSÉ AGUIRRE Electrocardiogram DATE OF : 36 PHYSICIAN: JOSHUA DE ANDA DO REPORT #: [id number] REPORT IS CONFIDENTIAL AND NOT TO BE RELEASED WITHOUT AUTHORIZATION
== END 2020-12-21 23:11 | disposition home or self-care (01) ==
LOC: ED 17:31
DX: R10.32 Left lower quadrant pain (principal); I10 Essential (primary) hypertension; J43.9 Emphysema, unspecified; I25.2 Old myocardial infarction; Z87.891 Personal history of nicotine dependence; Z91.030 Bee allergy status; Z88.8 Allergy status to other drugs, medicaments and biological substances; Z79.899 Other long term (current) drug therapy
CPT/HCPCS: 74177; 80053; 81001; 83690; 85025; 93005; 93010; 99284-25; Q9967

== ENCOUNTER 2021-10-24 01:40 | Emergency (ER) | payer MEDICARE ==
[~2021-10-24] VITALS: Ht 177.8 cm; Wt 58.5 kg
[2021-10-24] MEDS ORDERED: HYDROCODON-ACE1 EA10 PO (02:15)
== END 2021-10-24 03:08 | disposition home or self-care (01) ==
LOC: ED 01:40
DX: S93.401A Sprain of unspecified ligament of right ankle, initial encounter (principal); S93.601A Unspecified sprain of right foot, initial encounter; I10 Essential (primary) hypertension; J43.9 Emphysema, unspecified; M19.90 Unspecified osteoarthritis, unspecified site; I25.2 Old myocardial infarction; Z87.891 Personal history of nicotine dependence; Z88.8 Allergy status to other drugs, medicaments and biological substances; Z91.030 Bee allergy status; Z79.899 Other long term (current) drug therapy
CPT/HCPCS: 73610; 73630; 99283-25; A9270

== ENCOUNTER 2022-02-03 18:30 | Inpatient (IN) | payer MEDICARE ==
[~2022-02-03] VITALS: Ht 177.8 cm; Wt 61.9 kg
[~2022-02-03 18:30] MED LIST changes: +HYDROCODON-ACE1 EA10 PO
--- OUTSIDE RECORDS SUMMARY | 2022-02-03 18:32 | XMS ---
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 EJuly VISIT COUNT (12 MO.) 1 [facility] 2 [facility] TOTAL 3 NOTE: Visits indicate total known visits. ED/UCC VISIT TRACKING (12 MO.) 02/03/2022 18:31 [facility] TYPE: Emergency COMPLAINT: - UNRESPONSIVE 10/24/2021 01:41 [facility] TYPE: Emergency COMPLAINT: - RIGHT FOOT/ ANKLE PAIN DIAGNOSES: - Allergy status to other drugs, medicaments and biological substances - Bee allergy status - Emphysema, unspecified - Sprain of unspecified ligament of right ankle, initial encounter - Unspecified osteoarthritis, unspecified site - Personal history of nicotine dependence - Old myocardial infarction - Essential (primary) hypertension - Unspecified sprain of right foot, initial encounter - Pain in right ankle and joints of right foot - Other intermediate card tender (current) drug therapy 02/10/2021 13:38 [facility] TYPE: Emergency DIAGNOSES: - Hemoptysis (<120cc Per Day) - Coughing up Blood - Other nonspecific abnormal finding of lung field - Other pulmonary embolism without acute cor pulmonale INPATIENT VISIT TRACKING (12 MO.) No inpatient visits to display in this time frame [email or web address]
--- NOTE | 2022-02-04 00:12 | EKG ---
[facility] [address] [facility] [place] [address] Signed Sinus rhythm with 1st degree AV block Left axis deviation Nonspecific intraventricular block Possible Lateral infarct (cited on or before 21-JAN-2016) Inferior infarct , age undetermined T wave abnormality, consider anterior ischemia Abnormal ECG When compared with ECG of 21-DEC-2020 20:25, premature ventricular complexes are no longer present Left anterior fascicular block is no longer present Inferior infarct is now present Serial changes of evolving Lateral infarct present Confirmed by SALEEM CRAWLEY MD ([id number]) on 02/04/2022 12:12:36 AM Electronically Signed By: SALEEM CRAWLEY MD 02/04/2211 PATIENT NAME: JOSÉ AGUIRRE Electrocardiogram DATE OF : 36 PHYSICIAN: SALEEM CRAWLEY MD REPORT #: [id number] REPORT IS CONFIDENTIAL AND NOT TO BE RELEASED WITHOUT AUTHORIZATION
--- NOTE | 2022-02-04 00:13 | EKG ---
[facility] [address] [place] [address] Signed Sinus rhythm with 1st degree AV block Nonspecific intraventricular block Right ventricular hypertrophy Lateral infarct (cited on or before 21-JAN-2016) T wave abnormality, consider inferior ischemia T wave abnormality, consider anterior ischemia Abnormal ECG When compared with ECG of 03-FEB-2022 18:39, (Unconfirmed) Questionable change in QRS axis Criteria for Inferior infarct are no longer present Serial changes of Lateral infarct present Confirmed by SALEEM CRAWLEY MD ([id number]) on 02/04/2022 12:13:25 AM Electronically Signed By: SALEEM CRAWLEY MD 02/04/22 0013 PATIENT NAME: JOSÉ AGUIRRE Electrocardiogram DATE OF : 36 PHYSICIAN: SALEEM CRAWLEY MD REPORT #: [id number] REPORT IS CONFIDENTIAL AND NOT TO BE RELEASED WITHOUT AUTHORIZATION
--- NOTE | 2022-02-04 00:30 | NUR ---
DR. CRWALEY CONSULTED REGARDING CONCERN FOR ANALGESIA AND ANTICOAG. INFORMED BY PT DOES NOT APPEAR TO BE IN ANY PAIN AND DOES NOT REQUIRE ANY ANALGESIA AT THIS TIME. TROPONINS TRENDING UPWARD, NO ORDERS FOR ANTICOAGS AT THIS TIME.
--- NOTE | 2022-02-04 05:19 | NUR ---
ATTEMPTED TO PLACE PATIENT ON CPAP 8, PS 10, AND PT HAD 20 SECOND APNEIC PERIODS. WILL WAIT TO ATTEMPT WEANING TRIAL AGAIN AFTER SEDATION IS TURNED OFF. RN AWARE OF FAIL WHILE ON PRECEDEX.
--- NOTE | 2022-02-04 06:28 | NUR ---
PT REMAINS INTUBATED, AND SEDATED WITH NO CHANGES IN OXYGNATION OR VENTILATION. PT FOLLOWS COMMANDS AND MOVES ALL FOUR EXTREMITIES WITH PURPOSE. PT HAS BEEN IN A SB RHYTHM WITH A FIRST DEGREE AV BLOCK CONFIRMED BY EKG. PT HAS BEEN NORMOTENSIVE AND A-FEBRILE THROUGHOUT THE NIGHT. PT WITH CRITICAL TROPONIN OF 600.1. DR CRAWLEY INFORMED, NO NEW ORDERS OBTAINED. PT WITH DIMINISHED UO. DR. CRAWLEY INFORMED. LAST BM MANAGER MEDIA RELATIONS. CREATININE IS IMPROVING FROM 1.8 TO 1.34.
--- NOTE | 2022-02-04 07:30 | NUR ---
REPORT RECEIVED, CARE OF PT ASSUMED AT THIS TIME.
--- NOTE | 2022-02-04 07:44 | NUR ---
IMAGING IN ROOM FOR CHEST XRAY. PT ATTEMPTING TO SIT UP RASS OF +2. PRECEDEX DRIP INFUSING AT 1 MG/KG/HR. IV FLUIDS INFUSING AT 50 MG/HR. BRADICARDIA. SPO2 = 99% ON VENT AT FIO2 OF 40%.LUNG SOUNDS CLEAR TO DIMINISHED IN BILATERAL BASES. ALL PUSLES IN DISTAL EXTREMITIES STRONG. BOWEL TONES HYPOACTIVE. THIS RTN REMAINS AT BEDSIDE.
--- NOTE | 2022-02-04 08:30 | NUR ---
DR CRAWLEY AT PT BEDSIDE AT THIS TIME. PLAN ESTABLISHED TO WAIT UNTIL PTS 9 AM LABS BEFORE STARTING AWAKENING TRIAL.
--- NOTE | 2022-02-04 08:38 | NUR ---
PATIENT REMIAN INTUBATED AND UNDER SEDATION. WILL ATTEMPT TO SPEAK WITH WHEN SHE ARRIVES.
--- NOTE | 2022-02-04 08:45 | NUR ---
RT IN ROOM TO ADJUST VENTILATOR SETTINGS BASED ON ABG RESULTS.
--- NOTE | 2022-02-04 08:45 | NUR ---
PATIENT RESTING IN BED. VITALS AND I&OS CHARTED. VENT AND SOFT RESTRAINTS IN PLACE. GRADY EMPTIED. CALL LIGHT IN EASY REACH
--- NOTE | 2022-02-04 09:07 | NUR ---
LAB IN ROOM AT THIS TIME FOR BLOOD DRAW.
--- NOTE | 2022-02-04 09:56 | NUR ---
DR CRAWLEY UPDATED ON LAB RESULTS. IMAGING IN ROOM TO REPEAT CHEST XRAY. PLAN ESTABLISHED TO BEGIN WEANING TRAIL.
--- NOTE | 2022-02-04 10:30 | NUR ---
THIS RN AT BEDSIDE. PRECEDEX DRIP TITRATED DOWN (SEE FLOWSHEET). PT REMAINS SEDATED AT A RASS SCOR OF BETWEEN 0 AND -2. THIS RN REMAINS AT BEDSIDE.
--- NOTE | 2022-02-04 10:52 | NUR ---
PT PULLING AT WRIST RESTRAINTS. OPENS EYES AND FOLLWOUNG SOME COMMANDS. THIS RN REMAINS AT BEDSIDE.
--- NOTE | 2022-02-04 10:56 | NUR ---
NOW AT PT BEDSIDE.
--- NOTE | 2022-02-04 11:30 | NUR ---
RT IN ROOM TO ASSESS PT FOR SPONTANEOUS BREATHING TRAIL. PT REMAINS TOO DROWSY. WILL REATTEMPT AFTER PT IS MORE ALERT.
--- NOTE | 2022-02-04 12:14 | NUR ---
ASSESSMENT COMPLETED. PT REMAINS VERY DROWSY, FOLLOWING SOME COMMANDS. BED BATH, AND GRADY CARE COMPLETED. LESS CRACKLES NOTED IN BASES SINCE PT WAS SALINE LOCKED. PT'S NEPHEW IS AT BEDSIDE. WILL CONTINUE TO CLOSELY MONITOR.
--- NOTE | 2022-02-04 13:02 | NUR ---
PT NOW ON CPAP. SATURTIONS AT 100 AND RESPIRATIONS EVEN AND UNLABORED. PLAN ESTABLISHED WITH RT FOR PT TO REMAIN ON 30 MINUTES BEFORE EXTUBATION.
--- NOTE | 2022-02-04 13:45 | NUR ---
PT EXTUBATED. NO ISSUES WITH EXTUBATION. PT NOW ON 2 L NC. SPO2 = 94% ON [address] CRAWLEY, RT RAPHAEL, AND THIS RN AT BEDSIDE FOR EXTUBATION. PT NOW RESTING, BREATHING EVEN AND UNLABORED. HEART RATE IN THE 50-60 AT REST. RESPIRATIONS 15-20 AT REST. CALL LIGHT WITHIN REACH. WILL CONTINUE TO MONITOR.
--- NOTE | 2022-02-04 15:23 | NUR ---
REPOSITIONED PT IN THE BED TO ASSIST WITH TAKING ORAL MEDICATION. PT SWALLOWING WELL. HEART RATE IN THE 60S AT REST. BLOOD PRESSURE WNL. PT ALERT AND ORIENTED TO SELF, , AND LOCATION. COMPLAINS OF MILD THROAT DISCOMFORT. NO OTHER COMPLAINTS OF PAIN. REMAINS AT BEDSIDE. CALL LIGHT WITHIN REACH. WILL CONTINUE TO MONITOR.
--- NOTE | 2022-02-04 17:00 | NUR ---
DR CRAWLEY IN ROOM AT THIS TIME TO CHECK ON PT AND UPDATE ON PLAN OF CARE. ALL QUESTIONS ANSERED. PT REMAINS RESTING. BREATHING EVEN AND UNLABORED. CALL LIGHT WITHIN REACH.
--- NOTE | 2022-02-04 17:31 | NUR ---
PT MOUTH BREATHING. OXYGEN SATURATIONS DOWN TO 87% ON 2 L NC. INCREASED SUPPLEMENTAL O2 TO 4 L NC AT THIS TIME. PTS REMAINS AT BEDSIDE. PT DENIES PAIN OR DISCOMFORT. CALL LIGHT WITHIN REACH. NO FURTHER NEEDS AT THIS TIME
--- NOTE | 2022-02-04 19:45 | NUR ---
PT RESTING IN BED, HE IS ALERT AND ORIENTED, HE IS CURRENTLY DESATURATING OXYGEN TO 85% ON N.C. ON 4L, INCREASED TO 5L AND REPLACED OXIMETRY READER TO FINGER FROM NOSE, OXYGEN IMPROVED TO 91%.
--- NOTE | 2022-02-04 20:15 | NUR ---
PT DESATURATING ON N,C, AT 5L, PT PLACED TO OXYMASK IMPROVED TO 95% OXYGEN SATURATION. PT REPORTS HE HAS NO PAIN, HE REPORTS HE IS COLD, TEMP IS 98.6 AT THIS TIME.
--- NOTE | 2022-02-04 21:04 | NUR ---
INTO PT ROOM FOR HS MED PASS, PT REPORTS HE NEEDS BUTTERMILK TO TAKE PILLS, THIS RN SAID, "WE DONT HAVE THAT HERE, WOULD APPLESAUCE WORK?" HE SAID "THAT MIGHT BE ALRIGHT" PILLS TAKEN WITH APPLESAUCE. BERRRY CLEAR ENSURE PROVIDED WELL. 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 V/S STABLE
--- NOTE | 2022-02-04 23:01 | NUR ---
PT CALLED NURSES STATION TO REQUEST ASSISTANCE TO REARRANGE HIS LINES, LEADS AND BLANKETS. PT ASSISTED, HE REPORTS HE IS COMFORTABLE AT THIS TIME, HE VERBALIZED NO FURTHER NEEDS AT THIS TIME.
--- NOTE | 2022-02-04 23:33 | NUR ---
PT RESTING QUIETLY IN BED, EYES CLOSED NO DISTRESS NOTED, V/S STABLE
--- NOTE | 2022-02-05 00:15 | NUR ---
PT NOW HAS BED ALARM THIS RN ROUNDING FOUND PT ATTEMPTING TO GET OUT OF BED. WHEN ASKED, "WHAT ARE YOU GETTING UP FOR?" HE SAID, "I AM GETTING UP TO BRUSH MY TEETH." PT ORIENTED TO TIME. HE THEN SAID HIS RIGHT SHOULDER IS HURTING, AND HE CANT GO BACK TO SLEEP. PT ADMINSITERED TRAMADOL PRN 50MG PO FOR RIGHT SHOULDER PAIN AND GENERALIZED PAIN. WARM BLANKET PROVIDED, PT SAID "GOOD NIGHT"
--- NOTE | 2022-02-05 06:11 | NUR ---
PT UP TO RECLINER, BED LINENS CHANGED OUT. PT TOLERATED WELL, WEAK, TWO PERSON ASSIST. HE HAS SUPPLIES TO BRUSH DENTURES AT TABLE, HE IS DOING THIS TO PREPARE FOR BREAKFAST. HE REPORTS HIS RIGHT SHOULDER IS SORE, HE DECLINES NEED TO PAIN MEDICATIONS AT THIS TIME.
--- NOTE | 2022-02-05 07:12 | EKG ---
[facility] [address] [facility] [place] [address] Signed Sinus bradycardia with 1st degree AV block Left axis deviation Nonspecific intraventricular block Inferior infarct , age undetermined Abnormal ECG When compared with ECG of 03-FEB-2022 19:05, Significant changes have occurred Confirmed by SALEEM CRAWLEY MD ([id number]) on 02/05/2022 7:12:09 AM Electronically Signed By: SALEEM CRAWLEY MD 02/05/22711 PATIENT NAME: JOSÉ AGUIRRE Electrocardiogram DATE OF : 36 PHYSICIAN: SALEEM CRAWLEY MD REPORT #: [id number] REPORT IS CONFIDENTIAL AND NOT TO BE RELEASED WITHOUT AUTHORIZATION
--- NOTE | 2022-02-05 07:30 | NUR ---
REPORT RECEIVED, CARE OF PT ASSUMED AT THIS TIME. PT UP IN CHAIR. CALL LIGHT WITHIN REACH. NO NEEDS AT THIS TIME.
--- NOTE | 2022-02-05 08:15 | NUR ---
ASSESSMENT COMPLETED. PT HAS DIFFICULT TIME SWALLOWING PILLS, REPORTS HAVE TROUBLE SWALLOWING AT BASELINE. LUNGS SOUND CLEAR THROUGH OUT. PT ON 4 L NC AND SPO2 = 93%. DISCUSSED PLAN TO DC GRADY CATHETER TODAY AND GET PT UP AND WALKING. PT DENIES PAIN AT THIS TIME. PT EATING BREAKFAST, CALL LIGHT WITHIN REACH. WILL CONTINUE TO MONITOR.
--- NOTE | 2022-02-05 08:59 | NUR ---
PT BACK IN BED. SHORTNESS OF BREATH WITH EXERTION BUT RECOVERS AT REST. DISCUSSED PLAN TO DC YSABEL MESSER LATER IN THE SHIFT. REPLACED CARDIAC LEAD. CALL LIGHT WITHIN REACH. WILL CONTINUE TO MONITOR.
--- NOTE | 2022-02-05 09:35 | NUR ---
CALL LIGHT ANSWERED, PATIENT STATES HE NEEDS TO USE BSC. 1PA AND PATIENT TOLERATED WELL, HOWEVER A LITTLE UNSTEADY ON HIS FEET. PATIENT BODY WASHED AND NEW GOWN/LINEN PROVIDED. CALL LIGHT IN EASY REACH. NO OTHER NEEDS AT THIS TIME
--- NOTE | 2022-02-05 11:00 | NUR ---
Spoke with pt and his . Pt lives at home with , has 2 steps into home and denies issues getting in or out. He has 02 at home and uses 2-4 L. Pt was diagnosed with lung cancer and has been receiving radiation treatments. He has been having issues swallowing and takes his pills with buttermilk so they don't stick. Pt plans on dc to home when medically cleared. He and deny need for any further DME.
--- NOTE | 2022-02-05 12:01 | NUR ---
DR CRAWLEY IN ROOM AT THIS TIME TO ASSESS PT AND DISCUSS PLAN OF CARE WITH PT AND . GRADY CATHETER DC'D AND PLAN ESTABLISHED FOR PT TO GO TO THE MEDICAL FLOOR. PLAN ESTABLISHED FOR THERAPIES INCLUDING SPEECH THERAPY. ALL QUESTIONS ANSWERED. CALL LIGHT WITHIN REACH. WILL CONTINUE TO MONITOR.
--- NOTE | 2022-02-05 12:42 | NUR ---
REPORT RECEIVED FROM JAYLENE BLEVINS. AWAITING PTS ARRIVAL TO MED/SURG.
--- NOTE | 2022-02-05 12:59 | NUR ---
PATIENT ARRIVED TO ROOM 123 VIA CHAIR, VITALS ARE STABLE, SPOUSE IS IN ROOM WITH PATIENT.
--- NOTE | 2022-02-05 13:30 | NUR ---
PT ARRIVED FROM CCU. PT UP TO CHAIR. PT HAS VOIDED AND SATURATED CHAIR. PT UP TO RESTROOM WITH 1 PERSON ASSIST AND FWW. PT VERY UNSTEADY ON FEET AND FALLS BACK TO CHAIR X2 BEFORE AMBULATING TO RESTROOM WITH GATE BELT. PT HAS SOFT BROWN BOWEL MOVEMENT. MARLEE CARE DONE. DEPENDS PLACED. 1PERSON ASSIST WITH FWW AND GATE BELT BACK TO BED. PT REPORTS HE WOULD LIKE TO REST. PT DENIES PAIN AND NAUSEA. PT ORENTED TO SELF, OTHERS IN THE ROOM AND PLACE BUT DISORIENTED TO DATE, TIME AND SITUATION. PT TELLS A LONG STROY ABOUT LEAVING HIS [employer] HOUSE AND SLIPPING ON ICE WHICH IS WHY HE IS NOW IN THE HOSPITAL. PT REORIENTED TO EVENTS. PTS ASSISTS WITH REORIENTATION. MEDICATION GIVEN. PT HAS DIFFICUTLY SWALLOWING WITH THROAT CLEARING AND COMPLAINTS THAT FLUID IS "STUCK IN MY THROAT." EDUCATION DONE WIHT PT REGARDING CHIN TUCK WHEN SWALLOWING, PT DECLINES STATING "I LIKE TO DO IT MY WAY." IV FLUSHED AND SALINE LOCKED. LUGN SOUNDS CLEAR BUT FOR FINE CRACKELS IN LLL, UPPER AIRWAY CONGESTION HEARD WITH FREQUENT THROAT CLEARING. PT PRODUCES THICK WHITE SPUTUM WITH COUGH. PT REMAINS ON 4L O2 BY NC PER BASELINE WITH OXGYEN SATURATIONS ABOVE 94%. HEART TONES REGULAR. SINUS RYTHEM NOTED ON TELMETRY MONTIORING. BOWEL TONES ACTIVE. PT CONTINEUS TO HAVE URGENCY WITH BOWEL MOVEMENTS WITH SOFT BROWN STOOL NOTED. PT DENIES NAUSEA. ABDOMEN SOFT AND NON TENDER. GRADY CATHETER DC'D IN CCU, NO LONGER IN PLACE. PT INCONTINANT, DEPENDS IN PLACE. PT RESTING IN BED WITH HEAED OF BED AT 33 DEGRESE. PT LEFT SIDE LYING. PTS AT BEDSIDE. NO ADDIITONAL REQUESTS OR COMPLAINTS. CALL LIGHT WIHTIN REACH. BED RAILS UP.
--- NOTE | 2022-02-05 14:38 | NUR ---
THIS RN TO ROOM TO CHECK ON PT. PT LYING ON LEFT SIDE, HEAD OF BED ELEVATED TO 30 DEGREES. PTS LEAVING TO RUN ERRANDS. BED ALARM ON. CALL LIGHT WITHIN REACH. PT ALLOWED TO REST.
--- NOTE | 2022-02-05 15:30 | NUR ---
THIS RN TO ROOM TO CHECK ON PT. PT FINISHED WORKING WITH PHYSICAL THERAPY. PHYSICAL THERPIST CONCERNED ABOUT PTS OXGYENATION. 84% SEEN ON MOINTOR WITH PT ON 4L O2 BY NC. POOR WAVE FORM NOTED. PULSE OX ADJUSTED AND FINGERS WARMED AND 94% SEEN ON MONIORT. PT DENIES SHORTNESS OF BREATH STATING "IT'S JUST MY NORMAL." WORK OF BREATHING WNL. PT DENIES PAIN AND NAUSEA. NO ADDITIONAL REQUESTS OR COMPLAINTS. CALL LIGHT WITHIN REACH. BED RAILS UP. BED ALARM ON.
--- NOTE | 2022-02-05 16:24 | NUR ---
PT TRANSFERED FROM CCU THIS SHIFT, HERE FORPOSSIBLE CARDIAC ARYTHMIA, ASPIRATION PNEUMONIA AND ACUTE RESPIRATORY FAILURE. PT DISOREINTED THIS SHFIT TO EVENTS AND DATE BUT ABLE TO RESPOND TO QUESTIONS APPROPIRATLY. PT UP WITH 1 PERSON ASISST AND FWW AND GATE BELT. PT VERY UNSTEADY ON FEET. PT TOELRATING 2 GRAM SODIUM DIET WITH MINIMAL INTAKE, DRINKING ENSURE. SWALLOWING DIFFICULTIES CONTINUE, SPEECH THERAPY INVOLVED. TELEMETRY MONITORING WITH NORMAL SINUS RYTHEM NOTED ON MIN. PT REMAINS ON 4L O2 BY NC PER BASELINE, MONET NOTED WITH ACTIVITY. PHYSICAL AND OCCUPATIONAL THERAPY INVOLVED. PT INCONTINANT OF URINE, YSABEL WEIR'Carla. BOWEL MOVEMENT, LOOSE, NOTED THIS SHIFT. PT DOES NOT USE CALL LIGHT. BED AND CHAIR ALARM FOR SAFETY.
--- NOTE | 2022-02-05 17:12 | NUR ---
MEDICATION DUE. PT VISITING AND WORKING WITH OCCUPATIONAL THERAPY. DINNER DELIVERED, PT UP TO CHAIR WITH ONE PERSON ASSIST AND FWW FOR DINNER. CHAIR ALARM PLACED. MEDICATION GIVEN WITH A SPOONFULL OF PUDDING, CAPSUL OPENED PHARMACIST, KENDALL STATES THAT WOULD BE ACCEPTABLE. DEPENDS DRY. PT DENIES PAIN AND NAUSEA. PT FEEDING SELF. NO ADDITONAL REQUESTS OR COMPLAINTS. CALL LIGHT WITHIN REACH. CHAIR ALARM ON. PTS AT BEDSIDE.
--- NOTE | 2022-02-05 18:32 | NUR ---
PT CALL LIGHT ON. PT REQUESTS TO GET BACK TO BED. PT FINISHED WITH DINNER ABLE TO EAT ~80%. 1 PERSON ASSIST AND FWW BACK TO BED. PT POSITIONED FOR COMFORT WITH HEAD OF BED AT 31 DEGERES. PT DENEIS PAIN AND NASUEA. PT DENIES ADDIITONAL REQUESTS OR COMPLAITNS. ICE WATER REFILLED. CALL LIGHT WIHTIN REACH. BED RAILS UP. BED ALARM ON.
--- NOTE | 2022-02-05 19:43 | NUR ---
REPORT RECEIVED FROM DAY SHIFT RN. PT LYING IN BED WITH EYES CLOSED. RESPIRATIONS EVEN. 4L/NC IN PLACE. BED ALARM FOR SAFETY. CALL LIGHT IN REACH. WHITE BOARD UPDATED.
--- NOTE | 2022-02-05 22:01 | NUR ---
EVENING ASSESSMENT COMPLETE. SCHEDULED MEDS ADMIN PER EMAR. HOB ELEVATED. NO CHOKING OR COUGHING NOTED. PT DENIES PAIN OR NAUSEA. DENIES SOB. 4L/NC IN PLACE. SpO2 100%. RESPIRATIONS EVEN. LUNG CLEAR/DIM THROUGHOUT. PT ABLE TO REPOSITION SELF IN BED. DENIES QUESTIONS OR CONCERNS. CALL LIGHT IN REACH. BED ALARM FOR SAFETY.
--- NOTE | 2022-02-05 23:21 | NUR ---
CALL LIGHT ANSWERED. PT UP TO BR WITH FWW AND SBA TO VOID. INCONTINENT OF URINE WELL. STAFF ASSIST WITH MARLEE CARE. CLEAN BRIEF IN PLACE. BACK TO BED, DEO FAIR. GAIT UNSTEADY. SpO2 MID 80'S ON RETURN TO BED. PT REPORTS SOB. PT ABLE TO RECOVER TO HIGH 90'S WITH 4L/NC AFTER A FEW MINUTES. REPORTS INDIGESTION. NIO PLACED AND PROVIDED. NO FURTHER NEEDS AT THIS TIME. CALL LIGHT IN REACH. BED ALARM FOR SAFETY.
--- NOTE | 2022-02-06 02:50 | NUR ---
PT LYING IN BED RESTING WITH EYES CLOSED. RESPIRATIONS EVEN. HOB ELEVATED. BED ALARM IN PLACE. CALL LIGHT IN REACH.
--- NOTE | 2022-02-06 03:36 | NUR ---
CALL LIGHT ANSWERED. IN TO ASSIST PT USE URINAL TO VOID 200 ML YELLOW URINE. PT ABLE TO REPOSITION SELF IN BED. HOB ELEVATED. DENIES PAIN OR NASUEA. NO FURTHER NEEDS. BED ALARM FOR SAFETY. CALL LIGHT IN REACH.
--- NOTE | 2022-02-06 05:36 | NUR ---
VS AND I&O COMPLETE. PT DENIES PAIN OR NAUSEA. DENIES SOB. RESPIRATIONS EVEN. SpO2 97% ON 4L/NC. TELE #[address] HR 60'S. PT ABLE TO REPOSITION SELF IN BED. NO FURTHER NEEDS. BED ALARM FOR SAFETY.
--- NOTE | 2022-02-06 07:20 | NUR ---
Report from Pili Nicholson RN. Call light in reach, bed rails up X2. Resting in bed with eyes closed. Allowed to rest at this time. Respirations even and unlabored.
--- NOTE | 2022-02-06 08:55 | NUR ---
PATIENT SITTING UP IN HIS BED EATING HIS BREAKFAST.
--- NOTE | 2022-02-06 09:15 | NUR ---
ALERT IN BED. ASSESSMENT COMPLETED. AM MEDICATIONS ADMINISTERED WITHOUT DIFFICULTY. DENIES OTHER NEEDS, CALL LIGHT IN REAC BED RAILS UP X2.
--- NOTE | 2022-02-06 10:45 | NUR ---
Spoke with Kiran he is sitting on the edge of bed. He denies needs and is awaiting his . She is at a [facility] appt in [facility] and will pick him up later today to go home. Dc home this afternoon when his returns.
--- NOTE | 2022-02-06 13:03 | NUR ---
PATIENT IS SLEEPING.
[2022-02-06] MEDS ORDERED: XARELTO20 MG PO (13:21)
--- NOTE | 2022-02-06 13:55 | NUR ---
PATIENT RESTLESS. WHEN STAFF ENTER, OXYGEN IS NOT IN PLACE. OXYGEN REPLACED. PATIENT LAYS BACK IN BED AND CLOSES EYES. TRANSFUSION OF BLOOD COMPLETED. VITALS OBTAINED, BLOOD PRESSURE SLIGHTLY ELEVATED FROM BASELINE. PATIENT UNSURE IF HE ASPIRATED ON LAST MEDICATION ADMINISTERED. WHEN HE TOOK MEDICATION, NO SIGNS OF ASPIRATION NOTED BY THIS NURSE. OCCASIONAL COUGH, NO CHANGE FROM BASELINE. NO SIGNS OF TRANSFUSION REACTION NOTED.
--- NOTE | 2022-02-06 14:11 | NUR ---
Dr. Morse notified of patient concern he aspirated. No changes in lung sounds. Oxygen sats 99% on 4L/min per NC oxygen. Cough unchanged from this AM. No new orders at this time.
--- NOTE | 2022-02-06 15:36 | NUR ---
CALLED SPOUSE, ANEESH, SON ANSWERED DUE TO HER DRIVING AND STATED THEY WERE ON THE ROAD BACK TO TOWN FROM A [facility] APPOINTMENT AND SHE WILL BE TO FACILITY TO PICK PATIENT UP LATER THIS AFTERNOON.
== END 2022-02-06 16:30 | disposition home or self-care (01) | DRG 208 ==
LOC: ED 18:30 → CCU 22:07 → MS 02-05 12:59
PROVIDERS: ADMIT Internal Medicine; ATTEND Internal Medicine
PROC: 0BH18EZ Insertion of Endotracheal Airway into Trachea, Via Natural or Artificial Opening Endoscopic (ICD-10-PCS; principal; 2022-02-04)
PROC: 30233N1 Transfusion of Nonautologous Red Blood Cells into Peripheral Vein, Percutaneous Approach (ICD-10-PCS; 2022-02-04)
PROC: 5A1935Z Respiratory Ventilation, Less than 24 Consecutive Hours (ICD-10-PCS; 2022-02-04)
DX: J96.21 Acute and chronic respiratory failure with hypoxia (principal); I21.4 Non-ST elevation (NSTEMI) myocardial infarction; J43.9 Emphysema, unspecified; Z20.822 Contact with and (suspected) exposure to COVID-19; T68.XXXA Hypothermia, initial encounter; I49.9 Cardiac arrhythmia, unspecified; D64.9 Anemia, unspecified; M19.90 Unspecified osteoarthritis, unspecified site; Z85.118 Personal history of other malignant neoplasm of bronchus and lung; Z85.46 Personal history of malignant neoplasm of prostate; Z99.81 Dependence on supplemental oxygen; Z87.891 Personal history of nicotine dependence; Z90.79 Acquired absence of other genital organ(s); Z98.890 Other specified postprocedural states; Z88.8 Allergy status to other drugs, medicaments and biological substances; Z91.030 Bee allergy status; Z91.038 Other insect allergy status; Z79.899 Other long term (current) drug therapy; X31.XXXA Exposure to excessive natural cold, initial encounter
CPT/HCPCS: 36415; 36600; 70450; 71045; 80048; 80053; 81001; 82803; 83540; 83550; 83735; 83880; 84484; 85025; 85060; 85379; 85610; 85730; 86850; 86900; 86901; 86922; 87502; 92610; 93005; 93010; 93306; 94002; 94003; 97110; 97162; 97165; 97535; A9270; C9113; G0480; J2060; J7121; P9016; U0003

== ENCOUNTER 2022-11-28 22:20 | Emergency (ER) | payer MEDICARE ==
[~2022-11-28] VITALS: Ht 177.8 cm; Wt 62.1 kg
[~2022-11-28 22:20] MED LIST changes: +CIPRO500 MG PO; +LO-DOSE ASPIRIN81 MG PO; +MAG-OXIDE400 MG PO; +METRONIDAZOLE500 MG PO; -TRELEGY ELLIPT1 EACH IH; +TRELEGY ELLIPT1 EACH INH; +WARFARIN SODIUM3 MG PO; +XARELTO20 MG PO
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
[2022-11-28 23:17] LABS: INR 1.88 (0.80-1.30); PROTIME 20.8 Sec (11.2-14.2)
[2022-11-28 23:28] LABS: ALBUMIN 3.6 g/dL (3.4-5.0); ALBUMIN/GLOBULIN RATIO 1.09 (1.1-2.4); ALCOHOL, MEDICAL <3 ng/dL (<3); ALKALINE PHOSPHATASE 90 U/L (46-116); ALT (SGPT) 19 U/L (14-59); ANION GAP 9.1 (7-21); AST (SGOT) 37 U/L (15-37); BILIRUBIN, TOTAL 0.6 ng/dL (0.2-1.0); BUN/CREATININE RATIO 13.04 (6.0-28.6); CALCIUM 8.6 mg/dL (8.5-10.1); CARBON DIOXIDE 29 mmol/L (21-32); CHLORIDE 103 mmol/L (98-107); CREATININE, SERUM 1.38 mg/dL (0.70-1.30); GLOMERULAR FILTRATION RATE,EST 50 mL/min (>60); POTASSIUM 5.1 mmol/L (3.5-5.1); PROTEIN, TOTAL 6.9 g/dL (6.4-8.2); UREA NITROGEN 18 mg/dL (7-18)
[2022-11-28 23:28] LABS: BASOPHILS 0.7 % (0-2); EOSINOPHILS 1.5 % (0-6); HEMOGLOBIN 10.1 g/dL (12.0-18.0); LYMPHOCYTES 22.4 % (24-44); MCH 20.9 (27-36); MCHC 30.6 g/dl (30-36); MCV 68.4 fl (81-99); MONOCYTES 11.4 % (0-12); PLATELET COUNT 198 K/uL (140-440); RBC 4.83 M/ul (4.3-5.7); RDW 20.9 (10.5-15.0)
[2022-11-28 23:55] LABS: INFLUENZA B NAA NEGATIVE (NEGATIVE); RESPIRATORY SYNCYTIAL VIR NAA NEGATIVE (NEGATIVE)
[2022-11-29 00:04] LABS: BILIRUBIN, URINE NEGATIVE (negative); BLOOD/HGB, URINE NEGATIVE (Negative); KETONE, URINE NEGATIVE (Negative); LEUK ESTERASE, URINE NEGATIVE (negative); NITRITE, URINE NEGATIVE (negative); PH, URINE 6.5 (5-7)
[2022-11-29 00:08] LABS: ABO A; ANTIBODY SCREEN NEGATIVE; RH NEGATIVE
[2022-11-29 00:10] LABS: EPITHELIAL CELLS, URINE SQUAMOUS 1+ /lpf (0-1+)
[2022-11-29 00:11] LABS: BACTERIA, URINE RARE /hpf (negative); CRYSTALS, URINE NONE SEEN (0-1+); WHITE BLOOD CELLS, URINE 0-1 /HPF (0-5)
[2022-11-29 00:12] LABS: REFLEX CULTURE, URINE No (No)
[2022-11-29 00:18] LABS: AMPHETAMINES, URINE NEGATIVE (NEGATIVE); BARBITURATES, URINE NEGATIVE (NEGATIVE); BENZODIAZEPINE, URINE NEGATIVE (NEGATIVE); BUPRENORPHINE, URINE NEGATIVE (NEGATIVE); CANNABINOID, URINE NEGATIVE (NEGATIVE); COCAINE, URINE NEGATIVE (NEGATIVE); ECSTASY, URINE NEGATIVE (NEGATIVE); FENTANYL, URINE NEGATIVE (NEGATIVE); METHADONE, URINE NEGATIVE (NEGATIVE); OPIATES, URINE NEGATIVE (NEGATIVE); OXYCODONE, URINE NEGATIVE (NEGATIVE); PHENCYCLIDINE, URINE NEGATIVE (NEGATIVE)
[2022-11-29 01:07] VITALS: BP 110/64
--- NOTE | 2022-11-30 05:58 | EKG ---
[facility] [address] [facility] [place] [address] Signed Sinus rhythm with 1st degree AV block Left axis deviation Inferior-posterior infarct (cited on or before 22-FEB-2016) nonspecific intraven Abnormal ECG When compared with ECG of 04-FEB-2022 05:01, ST no longer depressed in Inferior leads Confirmed by DRISS QIU MD ([id number]) on 11/30/2022 5:57:44 AM Electronically Signed By: DRISS QIU 11/30/22 0558 PATIENT NAME: JOSÉ AGUIRRE Electrocardiogram DATE OF : 36 PHYSICIAN: DRISS QIU REPORT #: [id number] REPORT IS CONFIDENTIAL AND NOT TO BE RELEASED WITHOUT AUTHORIZATION
== END 2022-11-29 00:52 | disposition home or self-care (01) ==
LOC: ED 22:20
PROVIDERS: Family Medicine
DX: S06.9X9A Unspecified intracranial injury with loss of consciousness of unspecified duration, initial encounter (principal); I10 Essential (primary) hypertension; J43.9 Emphysema, unspecified; I25.2 Old myocardial infarction; W19.XXXA Unspecified fall, initial encounter; Z87.891 Personal history of nicotine dependence; Z91.030 Bee allergy status; Z79.899 Other long term (current) drug therapy; Z20.822 Contact with and (suspected) exposure to COVID-19; Z79.01 Long term (current) use of anticoagulants
CPT/HCPCS: 36415; 70450; 71045; 72125; 80053; 80307; 81001; 83880; 84484; 85025; 85060; 85610; 86850; 86900; 86901; 87502; 93005; 93010; 99284-25; C9803; G0480; U0002